=== PATIENT | female | born 1940 | race Caucasian/White ===

== ENCOUNTER → 2020-03-28 13:59 | Outpatient (BNVA) | payer MEDICARE, OTHER, SELFPAY | PROVIDERS: Family Provider Family Medicine; PCP Family Medicine; Visit Provider Family Medicine | DX: E03.9 Hypothyroidism, unspecified (principal); M19.90 Unspecified osteoarthritis, unspecified site; K21.9 Gastro-esophageal reflux disease without esophagitis; F03.90 Unspecified dementia, unspecified severity, without behavioral disturbance, psychotic disturbance, mood disturbance, and anxiety | CPT/HCPCS: 80053; 80061; 83735; 84443 ==

== ENCOUNTER → 2020-10-09 10:17 | Outpatient (BNVA) | payer MEDICARE, OTHER, SELFPAY | PROVIDERS: Family Provider Family Medicine; PCP Family Medicine; Visit Provider Family Medicine | DX: K64.9 Unspecified hemorrhoids (principal) | CPT/HCPCS: 82270 ==

== ENCOUNTER → 2020-10-11 10:41 | Outpatient (BNVA) | payer MEDICARE, OTHER, SELFPAY | PROVIDERS: Family Provider Family Medicine; PCP Family Medicine; Visit Provider Family Medicine | DX: E78.5 Hyperlipidemia, unspecified (principal); E03.9 Hypothyroidism, unspecified; Z51.81 Encounter for therapeutic drug level monitoring; Z23 Encounter for immunization | CPT/HCPCS: 80053; 80061; 83735; 84443; 85025 ==

== ENCOUNTER → 2021-02-18 13:25 | Outpatient (BNVA) | payer MEDICARE, OTHER, SELFPAY | PROVIDERS: Family Provider Family Medicine; PCP Family Medicine; Visit Provider Family Medicine | DX: N39.0 Urinary tract infection, site not specified (principal); K59.00 Constipation, unspecified | CPT/HCPCS: 81003 ==

== ENCOUNTER → 2021-04-07 12:13 | Outpatient (BNVA) | payer MEDICARE, OTHER, SELFPAY | PROVIDERS: Family Provider Family Medicine; PCP Family Medicine; Visit Provider Family Medicine | DX: N39.0 Urinary tract infection, site not specified (principal); E03.9 Hypothyroidism, unspecified; E78.2 Mixed hyperlipidemia; K21.9 Gastro-esophageal reflux disease without esophagitis; M19.90 Unspecified osteoarthritis, unspecified site | CPT/HCPCS: 80053; 80061; 81003; 84443; 85025 ==

== ENCOUNTER 2021-05-23 08:38 | Emergency (ER) | payer MEDICARE, OTHER, SELFPAY ==
[2021-05-23 09:09] VITALS: BP 177/69; PULSE 83; RESP 16; TEMP 36.6; O2SAT 100; BMI 20.7
[2021-05-23 09:43] VITALS: BP 157/58; PULSE 59; RESP 15; O2SAT 100
--- NOTE | 2021-05-23 10:03 | ECG_ITS ---
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 Measurements Intervals [place] Rate: 61 P: 73 AL: 146 QRS: 9 QRSD: 81 T: 73 QT: 411 QTc: 417 Interpretive Statements SINUS RHYTHM WITH SINUS ARRHYTHMIA MINIMAL ST DEPRESSION [0.025+ mV ST DEPRESSION] Compared to ECG 11/13/2017 15:42:41 No significant changes Electronically Signed On 05-23-2021 14:14:02 CDT by Dilcia Rg M.D. [email or web address]
--- NOTE | 2021-05-23 10:03 | XR_ITS ---
WS: [id number] Portable AP upright chest, 05/23/2021 Clinical Data: weight loss Comparison: Portable chest, 11/13/2017. Findings: No nodules, masses or effusions are seen. The heart is normal. The pulmonary vascularity is not increased. No pneumonia or pneumothorax is seen. The aortic arch shows calcification. The diaphr agms are flattened. There is an anterior cervical disc fusion. Monitor leads are on the chest wall. XR/XR chest 1V portable [id number] Impression: Atherosclerosis and hyperinflation.
--- NOTE | 2021-05-23 10:08 | ED_ITS ---
HPI - General Adult General: Chief complaint: General Medical Stated complaint: pain all over, losing weight Time Seen by Provider: 05/23/21 09:53 History of Present Illness: HPI narrative: Patient states that she is lost weight over the last month. Says she hurts all over which she attributes to her osteoarthritis. Said she has history of constipation. Says her kidneys are working well and she not making much urine. Onset (ago): week(s) Associated symptoms: Reports no associated symptoms; Deny chest pain, dyspnea, headache(s), nausea, rash or vomiting Treatments prior to arrival: none Review of Systems Const: Reports: change in weight; Denies: fever(s), chills or body aches Eyes: Denies: change in vision or blurry vision ENMT: Denies: throat pain or nasal congestion Card: Denies: chest pain or dyspnea on exertion Resp: Denies: dyspnea, productive cough or non-productive cough GI: Reports: constipation; Denies: abdominal pain, nausea or vomiting : Reports: oliguria Musc: Reports: joint pain; Denies: extremity pain Skin/Breast: Denies: rash Neuro: Denies: headache(s) Psych: Denies: anxiety or depression Yair/Lymph: Denies: easy bruising PFSH ED PFSH: Family History Other Cancer Diabetes Social History Smoking and tobacco status: never smoked Alcohol intake: never Household members: spouse Marital status: Current occupational status: retired Physical Exam Const: COMMON NORMALS: no acute distress, average body habitus and patient oriented x3 HENMT: COMMON NORMALS: normocephalic HEAD & SCALP: normal to inspection and normocephalic FACE & SINUS: normal facial exam Eye: COMMON NORMALS: conjunctivae normal GENERAL EYE: appearance normal, both eyes and all related structures CONJUNCTIVA: Yes conjunctivae normal Neck/C-Spine: COMMON NORMALS: no JVD Chest: COMMONS NORMALS: normal inspection of the chest Resp: COMMON NORMALS: normal respiratory effort and clear to auscultation bilaterally AUSCULTATION: clear to auscultation bilaterally Cardio: COMMON NORMALS: no JVD, regular rate and regular rhythm RATE: regular rate RHYTHM: regular rhythm OTHER: 1+ nonpitting edema bilateral lower extremities GI: COMMON NORMALS: Normal to inspection, nondistended, normoactive bowel sounds present Extremity: COMMON NORMALS: normal to inspection and full ROM Neuro: COMMON NORMALS: patient oriented x3 Course Vital Signs: Vital signs: Vital Signs Temperature 97.8 F 05/23/21 09:09 Pulse Rate 73 05/23/21 10:36 Respiratory Rate 16 05/23/21 10:36 Blood Pressure 150/45 05/23/21 10:36 Pulse Oximetry 99 05/23/21 10:36 MDM - General Adult MDM Narrative: Medical decision making narrative: Work-up with radiology and lab studies were negative for any concerning problems. Patient was concerned about decreased urine output and her osteoarthritis more than anything. Kidneys look good. Patient does have NSAID take for her arthritis patient is going follow-up new provider next week which she has appointment scheduled. Lab Data: Labs: Lab Results 05/23/21 05/23/21 05/23/21 Range/Units 09:30 09:53 09:53 WBC 8.2 (4.0-10.0) 10^3/ uL RBC 4.48 (4.1-5.3) 10^6/u L Hgb 13.5 (11.5-15.3) g/dL Hct 41.4 (37.0-47.0) % MCV 92.4 (81-99) fL MCH 30.1 (28.0-34.0) pg MCHC 32.6 (30.0-36.0) g/dL RDW 13.6 (12.1-15.1) % Plt Count 260 (130-400) 10^3/c mm MPV 10.9 H (7.4-10.4) fL Neut % (Auto) 67.4 % Lymph % (Auto) 23.0 % [place] % (Auto) 7.8 % Eos % (Auto) 1.0 % Baso % (Auto) 0.6 % Neut # (Auto) 5.51 (1.8-7.7) 10^3/u L Lymph # (Auto) 1.9 (0.8-4.8) 10^3/u L [place] # (Auto) 0.6 (0.2-0.9) 10^3/u L Eos # (Auto) 0.1 (0.0-0.8) 10^3/u L Baso # (Auto) 0.1 (0.0-0.1) 10^3/u L Nucleated RBC % (a uto) 0 % Nucleated RBCs # 0.0 /100WBC Sodium 139 (136-145) mmol/L Potassium 4.5 (3.5-5.1) mmol/L Chloride 104 (98-107) mmol/L Carbon Dioxide 25 (22-29) mmol/L Anion Gap 14.5 (5-19) BUN 12 (8-23) mg/dL Creatinine 0.8 (0.5-0.9) mg/dL GFR Calculation Not Reportable Glucose 139 H (65-115) mg/dL Calculated Osmolal ity 290 (285-295) mOsm/k g Calcium 9.0 (8.5-10.5) mg/dL Total Bilirubin 0.4 (0.15-1.2) mg/dL AST 17 (0-32) U/L ALT 7 (0-33) U/L Alkaline Phosphata se 82 (35-105) IU/L Total Protein 7.0 (6.6-8.7) g/dL Albumin 4.3 (3.5-5.2) g/dL Globulin 2.7 (1.3-4.6) g/dL TSH (0.27-4.20) uIU/ mL Urine Color Straw (Yellow) Urine Appearance Clear (CLEAR) Urine pH 7 (5-7) Ur Specific Gravit y 1.005 (1.005-1.030) Urine Protein Neg (Negative) Urine Glucose (UA) Norm (Normal) Urine Ketones Negative (Negative) Urine Blood Neg (Negative) Urine Nitrate Negative (Negative) Urine Bilirubin Neg (Negative) Urine Urobilinogen Norm (Negative) mg/dL Ur Leukocyte Cait ase Negative (Negative) 05/23/21 Range/Units 09:53 WBC (4.0-10.0) 10^3/ uL RBC (4.1-5.3) 10^6/u L Hgb (11.5-15.3) g/dL Hct (37.0-47.0) % MCV (81-99) fL MCH (28.0-34.0) pg MCHC (30.0-36.0) g/dL RDW (12.1-15.1) % Plt Count (130-400) 10^3/c mm MPV (7.4-10.4) fL Neut % (Auto) % Lymph % (Auto) % [place] % (Auto) % Eos % (Auto) % Baso % (Auto) % Neut # (Auto) (1.8-7.7) 10^3/u L Lymph # (Auto) (0.8-4.8) 10^3/u L [place] # (Auto) (0.2-0.9) 10^3/u L Eos # (Auto) (0.0-0.8) 10^3/u L Baso # (Auto) (0.0-0.1) 10^3/u L Nucleated RBC % (a uto) % Nucleated RBCs # /100WBC Sodium (136-145) mmol/L Potassium (3.5-5.1) mmol/L Chloride (98-107) mmol/L Carbon Dioxide (22-29) mmol/L Anion Gap (5-19) BUN (8-23) mg/dL Creatinine (0.5-0.9) mg/dL GFR Calculation Glucose (65-115) mg/dL Calculated Osmolal ity (285-295) mOsm/k g Calcium (8.5-10.5) mg/dL Total Bilirubin (0.15-1.2) mg/dL AST (0-32) U/L ALT (0-33) U/L Alkaline Phosphata se (35-105) IU/L Total Protein (6.6-8.7) g/dL Albumin (3.5-5.2) g/dL Globulin (1.3-4.6) g/dL TSH 2.46 (0.27-4.20) uIU/ mL Urine Color (Yellow) Urine Appearance (CLEAR) Urine pH (5-7) Ur Specific Gravit y (1.005-1.030) Urine Protein (Negative) Urine Glucose (UA) (Normal) Urine Ketones (Negative) Urine Blood (Negative) Urine Nitrate (Negative) Urine Bilirubin (Negative) Urine Urobilinogen (Negative) mg/dL Ur Leukocyte Cait ase (Negative) EKG Data^: EKG 1: EKG interpretation date: 05/23/21 EKG interpretation time: 10:23 Computer generated interpretation: Chest X-Ray 05/23/21 10:03 Impression: Atherosclerosis and hyperinflation. None sinus rhythm with sinus arrhythmia ventricular rate 61 bpm ID interval 146 ms cures duration 81 ms QT is [address] changes noted reviewed by Dr. Cruz Discharge Plan Discharge Patient Disposition: Home Clinical Impression: Excessive weight loss Osteoarthritis Qualifiers: Osteoarthritis location: multiple joints Osteoarthritis type: primary Qualified Code(s): M89.49 - Other hypertrophic osteoarthropathy, multiple sites Condition: Stable Prescriptions: No Action pramoxine [Proctofoam] 1 % foam 1 applic ID BID Qty: 15 RF: 3 rosuvastatin 10 mg tablet See Rx Instructions .ROUTE .COMPLEX Qty: 90 RF: 0 levothyroxine 100 mcg tablet See Rx Instructions .ROUTE .COMPLEX Qty: 90 RF: 5 donepezil 10 mg tablet See Rx Instructions .ROUTE .COMPLEX Qty: 90 RF: 5 diclofenac sodium [Voltaren] 1 % gel 2 g topical QID Qty: 100 RF: 0 meloxicam 7.5 mg tablet See Rx Instructions .ROUTE .COMPLEX Qty: 30 RF: 5 omeprazole 20 mg capsule,delayed release(DR/EC) See Rx Instructions .ROUTE .COMPLEX Qty: 90 RF: 0 ciprofloxacin HCl [Cipro] 500 mg tablet 500 mg PO BID Qty: 20 RF: 0 cetirizine 10 mg tablet See Rx Instructions .ROUTE .COMPLEX Qty: 90 RF: 5 magnesium oxide 400 mg (241.3 mg magnesium) tablet See Rx Instructions .ROUTE .COMPLEX Qty: 90 RF: 0 Discharge Orders: Discharge ED (Routine); Ordered 05/23/21 Ordered By: Donovan Hyde Discharge Diet: Usual diet Discharge Activity: Increase activity as tolerated Patient Instructions: Opioid Safety Activity Restrictions/Additional Instructions: Follow-up your regular scheduled appointment with your new provider. Discuss thyroid. Can return here if worsening symptoms. Coding Level of Care Code ED Central Stores Attendant for [place] Fwd Exam Comprehensive
[2021-05-23 10:10] LABS: Basophils # 0.1 10^3/uL (0.0-0.1); Basophils % 0.6 %; Eosinophils # 0.1 10^3/uL (0.0-0.8); Hematocrit 41.4 % (37.0-47.0); Hemoglobin 13.5 g/dL (11.5-15.3); Lymphocytes # 1.9 10^3/uL (0.8-4.8); Mean Corpuscular HGB Conc 32.6 g/dL (30.0-36.0); Mean Corpuscular Hemoglobin 30.1 pg (28.0-34.0); Mean Corpuscular Volume 92.4 fL (81-99); Mean Platelet Volume 10.9 fL (7.4-10.4); Monocytes # 0.6 10^3/uL (0.2-0.9); Monocytes % 7.8 %; Neutrophils # 5.51 10^3/uL (1.8-7.7); Neutrophils % 67.4 %; Nucleated Red Blood Cells % 0 %; Platelet Count 260 10^3/cmm (130-400); Red Blood Count 4.48 10^6/uL (4.1-5.3); Red Cell Distribution Width 13.6 % (12.1-15.1); White Blood Count 8.2 10^3/uL (4.0-10.0)
[2021-05-23 10:21] LABS: Add Urine Microscopic? NO; Charge for UA Resulting for Rev
[2021-05-23 10:23] LABS: Alanine Aminotransferase 7 U/L (0-33); Albumin Level 4.3 g/dL (3.5-5.2); Alkaline Phosphatase 82 IU/L (35-105); Anion Gap 14.5 (5-19); Aspartate Amino Transferase 17 U/L (0-32); Blood Urea Nitrogen 12 mg/dL (8-23); Carbon Dioxide 25 mmol/L (22-29); Chloride 104 mmol/L (98-107); Globulin 2.7 g/dL (1.3-4.6); Glucose 139 mg/dL (65-115); Osmolality Calculated 290 mOsm/kg (285-295); Potassium 4.5 mmol/L (3.5-5.1); Sodium 139 mmol/L (136-145); Total Bilirubin 0.4 mg/dL (0.15-1.2)
[2021-05-23 10:30] LABS: Bilirubin Urine Neg (Negative); Blood Urine Neg (Negative); Glucose Urine UA Norm (Normal); Ketones Urine Negative (Negative); Leukocyte Esterase Urine Negative (Negative); Nitrate Urine Negative (Negative); Protein Urine Neg (Negative); Specific Gravity, Urine 1.005 (1.005-1.030); Urine Appearance Clear (CLEAR); Urine Color Straw (Yellow); Urobilinogen Urine Norm (Negative); pH Urine 7 (5-7)
[2021-05-23 10:36] VITALS: BP 150/45; PULSE 73; RESP 16; O2SAT 99
[2021-05-23 11:21] LABS: Thyroid Stimulating Hormone 2.46 uIU/mL (0.27-4.20)
== END 2021-05-23 10:57 | disposition home or self-care (01) ==
PROVIDERS: Emergency Provider Nurse Practitioner Family
DX: R63.4 Abnormal weight loss (principal); M89.49 Other hypertrophic osteoarthropathy, multiple sites
CPT/HCPCS: 71045; 80053; 81003; 84443; 85025; 93005; 99283

== ENCOUNTER → 2021-06-16 11:05 | Outpatient (BNVA) | payer MEDICARE, OTHER, SELFPAY | DX: N39.0 Urinary tract infection, site not specified (principal); R68.89 Other general symptoms and signs; R39.9 Unspecified symptoms and signs involving the genitourinary system | CPT/HCPCS: 81000 ==

== ENCOUNTER 2022-02-03 18:30 | Emergency (ER) | payer MEDICARE, OTHER, SELFPAY ==
[2022-02-03 18:37] VITALS: BP 170/72; PULSE 90; RESP 18; TEMP 36.4; O2SAT 100; BMI 20.1
--- NOTE | 2022-02-03 18:52 | ED_ITS ---
HPI - General Adult General: Chief complaint: Neuro Symptoms/Deficit Stated complaint: Possible Mini Stroke Time Seen by Provider: 02/03/22 18:45 Source: patient Mode of arrival: ambulatory Limitations: no limitations History of Present Illness: 81-year-old female states she went to bed at 430 woke up roughly 2 hours ago states that she was very confused and could not form thoughts and could not speak. She states that she was unable to find words or speak for roughly an hour symptoms of since totally resolved states her speech is back to normal she had no facial droop no weakness denies any weakness here no history of stroke no headache no chest pain. Associated symptoms: Deny chest pain, dyspnea, headache(s), nausea, rash or vomiting Review of Systems Const: Denies: fever(s), chills, body aches or change in appetite Eyes: Denies: blurry vision or eye discomfort ENMT: Denies: throat pain or dental pain Card: Denies: chest pain Resp: Denies: dyspnea GI: Denies: abdominal pain, nausea, vomiting or diarrhea : Denies: dysuria Musc: Denies: neck pain or back pain Skin/Breast: Denies: rash Neuro: Reports: difficulty communicating thoughts; Denies: headache(s) Psych: Denies: depression Yair/Lymph: Denies: easy bruising All/Imm: Denies: urticaria PFSH ED PFSH: Medical History Acute hemorrhoid Multiple somatic complaints Peripheral neuropathic pain Urinary hesitancy Surgical History History of hip replacement History of partial hysterectomy Family History Other Cancer Diabetes Social History Alcohol intake: never Household members: spouse Marital status: Current occupational status: retired Physical Exam Const: COMMON NORMALS: no acute distress, patient oriented x3 and healthy appearing HENMT: COMMON NORMALS: normocephalic and atraumatic HEAD & SCALP: normocephalic and atraumatic Eye: COMMON NORMALS: Equal, round and reactive pupils present and EOMs intact bilaterally PUPIL: Yes Equal, round and reactive pupils present Neck/C-Spine: COMMON NORMALS: full ROM and supple Chest: COMMONS NORMALS: normal inspection of the chest and normal palpation of entire chest wall Resp: COMMON NORMALS: normal respiratory effort, No retractions, No use of accessory muscles and clear to auscultation bilaterally AUSCULTATION: clear to auscultation bilaterally Cardio: COMMON NORMALS: regular rate, regular rhythm and No murmurs present (Cardio) RATE: regular rate RHYTHM: regular rhythm GI: COMMON NORMALS: Normal to inspection, nondistended, normoactive bowel sounds present, Soft to palpation, non-tender and no masses PALPATION: Yes Soft to palpation Extremity: COMMON NORMALS: normal to inspection and full ROM Neuro: COMMON NORMALS: patient oriented x3, moves all extremities and no focal motor deficits Psych: COMMON NORMALS: mental status grossly normal, Normal thought process present and cooperative THOUGHT PROCESS: Normal thought process present Skin: COMMON NORMALS: no rashes or lesions noted and no wounds GENERAL SKIN EXAM: no rashes or lesions noted Course Vital Signs: Vital signs: Vital Signs Temperature 97.5 F L 02/03/22 18:37 Pulse Rate 75 02/03/22 20:44 Respiratory Rate 18 02/03/22 20:44 Blood Pressure 153/63 02/03/22 20:44 Pulse Oximetry 96 02/03/22 20:44 [facility] - General Adult Medical Decision Making Patient presents here with likely TIA her symptoms of symptoms completely resolved CT head here is normal. Did offer her admission and she never had a TIA in the past she states she feels much improved would like to go home she is already on a statin will start a baby aspirin she is to follow-up PCP in 3 to 5 days return if worsening she understands agrees plan. Lab Data : 02/03/22 19:05 02/03/22 19:05 Radiology Impressions Chest X-Ray 02/03/22 19:01 IMPRESSION: No acute finding. Head CT 02/03/22 19:01 IMPRESSION: 1. No acute intracranial abnormality. Laboratory Results WBC 12.8 10^3/uL (4.0-10.0) H 02/03/22 19:05 RBC 3.81 10^6/uL (4.1-5.3) L 02/03/22 19:05 Hgb 11.8 g/dL (11.5-15.3) 02/03/22 19:05 Hct 36.6 % (37.0-47.0) L 02/03/22 19:05 MCV 96.1 fl (81-99) 02/03/22 19:05 MCH 31.0 pg (28.0-34.0) 02/03/22 19:05 MCHC 32.2 g/dL (30.0-36.0) 02/03/22 19:05 RDW 13.5 % (12.1-15.1) 02/03/22 19:05 Plt Count 245 10^3/cmm (130-400) 02/03/22 19:05 MPV 11.0 fL (7.4-10.4) H 02/03/22 19:05 Neut % (Auto) 72.8 % 02/03/22 19:05 Lymph % (Auto) 16.9 % 02/03/22 19:05 [place] % (Auto) 9.4 % 02/03/22 19:05 Eos % (Auto) 0.2 % 02/03/22 19:05 Baso % (Auto) 0.5 % 02/03/22 19:05 Neut # (Auto) 9.27 10^3/uL (1.8-7.7) H 02/03/22 19:05 Lymph # (Auto) 2.2 10^3/uL (0.8-4.8) 02/03/22 19:05 [place] # (Auto) 1.2 10^3/uL (0.2-0.9) H 02/03/22 19:05 Eos # (Auto) 0.0 10^3/uL (0.0-0.8) 02/03/22 19:05 Baso # (Auto) 0.1 10^3/uL (0.0-0.1) 02/03/22 19:05 Nucleated RBC % (auto) 0 % 02/03/22 19:05 Nucleated RBCs # 0.0 /100WBC 02/03/22 19:05 PT 13.40 SECONDS (12.1-14.9) 02/03/22 19:05 INR 0.99 (0.8-1.2) 02/03/22 19:05 Sodium 141 mmol/L (136-145) 02/03/22 19:05 Potassium 4.1 mmol/L (3.5-5.1) 02/03/22 19:05 Chloride 108 mmol/L (98-107) H 02/03/22 19:05 Carbon Dioxide 22 mmol/L (22-29) 02/03/22 19:05 Anion Gap 15.1 (5-19) 02/03/22 19:05 BUN 18 mg/dL (8-23) 02/03/22 19:05 Creatinine 0.6 mg/dL (0.5-0.9) 02/03/22 19:05 GFR Calculation Not Reportable 02/03/22 19:05 Glucose 116 mg/dL (65-115) H 02/03/22 19:05 Calculated Osmolality 295 mOsm/kg (285-295) 02/03/22 19:05 Calcium 9.3 mg/dL (8.5-10.5) 02/03/22 19:05 Total Bilirubin 0.2 mg/dL (0.15-1.2) 02/03/22 19:05 AST 16 U/L (0-32) 02/03/22 19:05 ALT 10 U/L (0-33) 02/03/22 19:05 Alkaline Phosphatase 64 IU/L (35-105) 02/03/22 19:05 Total Protein 7.0 g/dL (6.6-8.7) 02/03/22 19:05 Albumin 4.2 g/dL (3.5-5.2) 02/03/22 19:05 Globulin 2.8 g/dL (1.3-4.6) 02/03/22 19:05 Urine Color Yellow (Yellow) 02/03/22 20:11 Urine Appearance Clear (CLEAR) 02/03/22 20:11 Urine pH 7 (5-7) 02/03/22 20:11 Ur Specific [place] 1.005 (1.005-1.030) 02/03/22 20:11 Urine Protein Neg (Negative) 02/03/22 20:11 Urine Glucose (UA) Norm (Normal) 02/03/22 20:11 Urine Ketones Negative (Negative) 02/03/22 20:11 Urine Blood Neg (Negative) 02/03/22 20:11 Urine Nitrate Negative (Negative) 02/03/22 20:11 Urine Bilirubin Neg (Negative) 02/03/22 20:11 Urine Urobilinogen Norm mg/dL (Negative) 02/03/22 20:11 Ur Leukocyte Esterase Negative (Negative) 02/03/22 20:11 Discharge Plan Discharge Patient Disposition: Home Clinical Impression: Transient cerebral ischemia Condition: Stable Prescriptions: New aspirin 81 mg tablet,delayed release (DR/EC) 81 mg PO DAILY Qty: 30 0RF No Action pramoxine [Proctofoam] 1 % foam 1 applic CO BID Qty: 15 3RF rosuvastatin 10 mg tablet See Rx Instructions .ROUTE .COMPLEX Qty: 90 0RF Dose Instruction: TAKE ONE TABLET BY MOUTH DAILY Rx Instructions: TAKE ONE TABLET BY MOUTH DAILY levothyroxine 100 mcg tablet See Rx Instructions .ROUTE .COMPLEX Qty: 90 5RF Dose Instruction: TAKE ONE TABLET BY MOUTH DAILY Rx Instructions: TAKE ONE TABLET BY MOUTH DAILY donepezil 10 mg tablet See Rx Instructions .ROUTE .COMPLEX Qty: 90 5RF Dose Instruction: TAKE ONE TABLET BY MOUTH EVERY DAY Rx Instructions: TAKE ONE TABLET BY MOUTH EVERY DAY diclofenac sodium [Voltaren] 1 % gel 2 g topical QID Qty: 100 0RF Rx Instructions: apply to single elbow, wrist or hand; for hand includes palm/fingers/back of hand meloxicam 7.5 mg tablet See Rx Instructions .ROUTE .COMPLEX Qty: 30 5RF Dose Instruction: TAKE ONE TABLET BY MOUTH DAILY - TAKE WITH FOOD Rx Instructions: TAKE ONE TABLET BY MOUTH DAILY - TAKE WITH FOOD omeprazole 20 mg capsule,delayed release(DR/EC) See Rx Instructions .ROUTE .COMPLEX Qty: 90 0RF Dose Instruction: TAKE ONE CAPSULE BY MOUTH EVERY DAY Rx Instructions: TAKE ONE CAPSULE BY MOUTH EVERY DAY tramadol 50 mg tablet 50 mg PO BID PRN0RF gabapentin 100 mg capsule 100 mg PO .qhs Qty: 30 0RF cetirizine 10 mg tablet See Rx Instructions .ROUTE .COMPLEX Qty: 90 5RF Dose Instruction: TAKE ONE TABLET BY MOUTH DAILY NEEDED FOR ALLERGY SYMPTOMS Rx Instructions: TAKE ONE TABLET BY MOUTH DAILY NEEDED FOR ALLERGY SYMPTOMS magnesium oxide 400 mg (241.3 mg magnesium) tablet See Rx Instructions .ROUTE .COMPLEX Qty: 90 0RF Dose Instruction: TAKE ONE TABLET BY MOUTH AT BEDTIME FOR LEG CRAMPS Rx Instructions: TAKE ONE TABLET BY MOUTH AT BEDTIME FOR LEG CRAMPS Discharge Orders: Discharge ED (Routine); Ordered 02/03/22 Ordered By: Patty Preciado Referrals: Cristopher Phillip MD [Primary Care Provider] - Discharge Diet: Advance as tolerated Discharge Activity: Resume usual activity Patient Instructions: TIA Coding Level of Care Code ED Eating Disorder Specialist for Ch[place] Fwd Exam Comprehensive NIH stroke score NIHSS Level Of Consciousness - 1a: 0 Level Of Consciousness Questions - 1b: Both Correct Level Of Consciousness Commands - 1c: Both Correct Best Gaze - 2: Normal Visual Doss - 3: No Visual Loss Facial Palsy - 4: Normal Motor Arm Right - 5: No Drift Motor Arm Left - 5: No Drift Motor Leg Right - 6: No Drift Motor Leg Left - 6: No Drift Limb Ataxia - 7: Absent Sensory - 8: Normal Best Language - 9: No Aphasia Dysarthia - 10: Normal Extinction And Inattention - 11: 0 Score Total Score: 0
--- NOTE | 2022-02-03 19:01 | CTR_ITS ---
PROCEDURE INFORMATION: Exam: CT Head Without Contrast Exam date and time: 02/03/2022 7:01 PM Age: 81 years old Clinical indication: Weakness, extremity TECHNIQUE: Imaging protocol: Computed tomography of the head without contrast. Radiation optimization: All CT scans at this facility use at least one of these dose optimization techniques: automated exposure control; mA and/or kV adjustment per patient size (includes targeted exams where dose is matched to clinical indication); or iterative reconstruction. COMPARISON: MRI Head w/wo* [id number] 08/13/2016 2:14 PM RADIATION DOSE METRICS: Total DLP (mGy-cm): 830.92 FINDINGS: Brain: Diffuse cortical volume loss, in keeping with patient age. Mild hypodensities in supratentorial periventricular and subcortical white matter, consistent with microangiopathy. No intracranial hemorrhage. Cerebral ventricles: No ventriculomegaly. Paranasal sinuses: Visualized sinuses are unremarkable. No fluid levels. Mastoid air cells: Visualized mastoid air cells are well aerated. Orbital cavity: Bilateral cataract surgery. Vasculature: No hyperdense artery. Bones/joints: Chronic thinning of the superior calvarium near the vertex. No fracture. Soft tissues: Unremarkable. CT/CT head wo con* [id number] IMPRESSION: 1. No acute intracranial abnormality.
--- NOTE | 2022-02-03 19:01 | XRR_ITS ---
PROCEDURE INFORMATION: Exam: XR Chest Exam date and time: 02/03/2022 7:01 PM Age: 81 years old Clinical indication: Other: Weakness TECHNIQUE: Imaging protocol: XR of the chest. Views: 1 view. COMPARISON: CR XR chest 1V portable [id number] 05/23/2021 10:20 AM FINDINGS: Lungs: Changes of emphysema. Calcified granuloma in the right lung base. The lungs are otherwise clear. Pleural spaces: Unremarkable. No pleural effusion. No pneumothorax. Heart/Mediastinum: Unremarkable. No cardiomegaly. Bones/joints: C-spine fusion hardware. XR/XR chest 1V portable [id number] IMPRESSION: No acute finding.
--- NOTE | 2022-02-03 19:04 | ECG_ITS ---
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 Measurements Intervals [place] Rate: 71 P: 70 [place]: 147 QRS: 34 QRSD: 77 T: 75 QT: 372 QTc: 404 Interpretive Statements SINUS RHYTHM SEPTAL MYOCARDIAL INFARCTION , PROBABLY OLD [40+ ms Q WAVE IN V1/V2] Compared to ECG 05/23/2021 10:22:59 Myocardial infarct finding now present Sinus arrhythmia no longer present ST (T wave) deviation no longer present Electronically Signed On 02-03-2022 20:21:24 INDUSTRIAL MACHINE ASSEMBLER by Nico Rosen M.D. [id number]
[2022-02-03 19:15] LABS: Basophils # 0.1 10^3/uL (0.0-0.1); Basophils % 0.5 %; Eosinophils % 0.2 %; Hematocrit 36.6 % (37.0-47.0); Hemoglobin 11.8 g/dL (11.5-15.3); Lymphocytes # 2.2 10^3/uL (0.8-4.8); Lymphocytes % 16.9 %; Mean Corpuscular HGB Conc 32.2 g/dL (30.0-36.0); Mean Corpuscular Volume 96.1 fl (81-99); Monocytes # 1.2 10^3/uL (0.2-0.9); Monocytes % 9.4 %; Neutrophils # 9.27 10^3/uL (1.8-7.7); Neutrophils % 72.8 %; Nucleated Red Blood Cells % 0 %; Platelet Count 245 10^3/cmm (130-400); Red Blood Count 3.81 10^6/uL (4.1-5.3); Red Cell Distribution Width 13.5 % (12.1-15.1); White Blood Count 12.8 10^3/uL (4.0-10.0)
[2022-02-03 19:27] LABS: INR 0.99 (0.8-1.2)
[2022-02-03] MEDS: sodium chloride 0.9% 1,000 ML 999 ML IV (19:34)
[2022-02-03 19:36] LABS: Alanine Aminotransferase 10 U/L (0-33); Albumin Level 4.2 g/dL (3.5-5.2); Alkaline Phosphatase 64 IU/L (35-105); Aspartate Amino Transferase 16 U/L (0-32); Blood Urea Nitrogen 18 mg/dL (8-23); Calcium 9.3 mg/dL (8.5-10.5); Carbon Dioxide 22 mmol/L (22-29); Chloride 108 mmol/L (98-107); Globulin 2.8 g/dL (1.3-4.6); Glucose 116 mg/dL (65-115); Osmolality Calculated 295 mOsm/kg (285-295); Sodium 141 mmol/L (136-145); Total Bilirubin 0.2 mg/dL (0.15-1.2)
[2022-02-03 19:37] LABS: Anion Gap 15.1 (5-19); Potassium 4.1 mmol/L (3.5-5.1)
[2022-02-03 20:33] LABS: Add Urine Microscopic? NO; Charge for UA Resulting for Rev
[2022-02-03 20:39] LABS: Bilirubin Urine Neg (Negative); Blood Urine Neg (Negative); Glucose Urine UA Norm (Normal); Ketones Urine Negative (Negative); Leukocyte Esterase Urine Negative (Negative); Nitrate Urine Negative (Negative); Protein Urine Neg (Negative); Specific Gravity, Urine 1.005 (1.005-1.030); Urine Appearance Clear (CLEAR); Urine Color Yellow (Yellow); Urobilinogen Urine Norm (Negative); pH Urine 7 (5-7)
[2022-02-03 20:44] VITALS: BP 153/63; PULSE 75; RESP 18; O2SAT 96
[2022-02-03 21:29] VITALS: BP 170/55; PULSE 77; RESP 18; O2SAT 100
--- NOTE | 2022-02-18 12:52 | DCPLANNER ---
studio operations manager had message to speak with patient about getting established with a primary care physician. studio operations manager unable to speak with patient or leave a voicemail at this time.
--- NOTE | 2022-02-18 12:54 | DCPLANNER ---
hall manager had message to speak with patient about getting established with a primary care physician. hall manager unable to speak with patient or leave a voicemail at this time.
== END 2022-02-03 21:34 | disposition home or self-care (01) ==
PROVIDERS: Emergency Provider Emergency Medicine; PCP Family Medicine Adult Medicine
DX: G45.9 Transient cerebral ischemic attack, unspecified (principal)
CPT/HCPCS: 70450; 71045; 80053; 81003; 85025; 85610; 93005; 96360; 99283; J7030

== ENCOUNTER 2022-04-07 07:57 | Emergency (ER) | payer MEDICARE, OTHER, SELFPAY ==
[2022-04-07 08:11] VITALS: BP 136/52; PULSE 78; RESP 14; O2SAT 99
[2022-04-07 08:14] VITALS: BP 154/51; PULSE 54; RESP 16; TEMP 36.6; O2SAT 99
--- NOTE | 2022-04-07 08:25 | CT_ITS ---
WS: [id number] CT HEAD NONCONTRAST HISTORY: AMS TECHNIQUE: Contiguous axial imaging performed through the brain in 2.5 mm imaging. Bone and soft tiss ue windows. Sagittal and coronal reformats reviewed. All CT scans at [facility] use at least one of these dose optimization techniques: automated exposure control; mA and/or kV adjustment per pa tient size (includes targeted exams where dose is matched to clinical indication); or iterative recon struction. DLP: 776.31 mGy.cm COMPARISON: 02/03/2022, MRI of 08/13/2016 No acute intracranial hemorrhage, midline shift or mass effect. Moderate atrophy cerebellum and cerebrum with mild small vessel ischemic disease. 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 No large territory infar ct or volume loss. Ventricles: Normally prominent ventricles and extra-axial spaces on the basis of volume loss. Paranasal sinuses: As visualized are clear. Mastoid air cells: Well pneumatized. Calvarium and scalp: Skull is intact with no soft tissue edema or swelling. CT/CT head wo con* [id number] IMPRESSION: 1. No acute intracranial hemorrhage or edema. 2. Moderate atrophy throughout the brain. Mild small vessel ischemic disease. No change since 02/03/2022.
--- NOTE | 2022-04-07 08:26 | ECG_ITS ---
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 Measurements Intervals [place] Rate: 55 P: 75 [place]: 156 QRS: 65 QRSD: 83 T: 85 QT: 434 QTc: 419 Interpretive Statements SINUS BRADYCARDIA WITH SINUS ARRHYTHMIA SEPTAL MYOCARDIAL INFARCTION , OF INDETERMINATE AGE [40+ ms Q WAVE IN V1/V2] Compared to ECG 02/03/2022 19:29:50 Sinus rhythm no longer present Myocardial infarct finding still present Electronically Signed On 04-07-2022 17:27:54 CDT by Nico Rosen M.D. [id number]
--- NOTE | 2022-04-07 08:40 | ED_ITS ---
HPI - Neuro Symptoms/Deficit General: Chief Complaint: Neuro Symptoms/Deficit Stated Complaint: possible stroke Time Seen by Provider: 04/07/22 07:58 Source: patient Mode of arrival: ambulatory Limitations: no limitations History of Present Illness: 81-year-old female presents emergency room with her . Patient is concerned she is having a stroke. She has difficulty walking and talking. For the last several weeks even months that she has had increasing difficulty with cognitive function and memory and diminishing physical capabilities to the point where it appears with her ability to maintain her ADLs. She is fearful and anxious on arrival. Onset (ago): week(s) Timing confirmed by: spouse History of same: Yes Severity: mild Quality: weak Relieving factors: none Exacerbating factors: none Context: gradual onset Associated symptoms: Reports malaise; Deny chest pain, cough, diaphoresis, fevers/chills, headache(s), anorexia, nause a, seizures, short of breath, syncope, tingling, vertigo, vomiting or weakness Treatments Prior to Arrival: none Review of Systems Const: Reports: fatigue and malaise; Denies: fever(s), chills, body aches, change in appetite or diaphoresis ENMT: Denies: throat pain, ear or mastoid pain, nasal discharge or nasal congestion Card: Denies: chest pain, edema, syncope, dyspnea on exertion or orthopnea Resp: Denies: dyspnea, productive cough or non-productive cough GI: Denies: abdominal pain, nausea, vomiting, hematemesis, coffee ground emesis, diarrhea, constipation, bloating, hematochezia or melena : Denies: flank pain, difficulty voiding, dysuria, urinary frequency or urinary urgency Skin/Breast: Denies: rash or pruritus Neuro: Denies: headache(s) or vertigo PFS ED PFSH: Medical History Acute hemorrhoid Dementia Hesitancy of micturition Multiple somatic complaints Peripheral neuropathic pain Urinary hesitancy Weight loss, non-intentional Surgical History History of hip replacement History of partial hysterectomy Family History Other Cancer Diabetes Social History Alcohol intake: never Household members: spouse Marital status: Current occupational status: retired NIH stroke score NIHSS: Level Of Consciousness - 1a: 0 Level Of Consciousness Questions - 1b: Both Correct Level Of Consciousness Commands - 1c: Both Correct Best Gaze - 2: Normal Visual Doss - 3: No Visual Loss Facial Palsy - 4: Normal Motor Arm Right - 5: No Drift Motor Arm Left - 5: No Drift Motor Leg Right - 6: No Drift Motor Leg Left - 6: No Drift Limb Ataxia - 7: Absent Sensory - 8: Normal Best Language - 9: No Aphasia Dysarthia - 10: Normal Extinction And Inattention - 11: 0 Score: Total Score: 0 Physical Exam Const: GENERAL APPEARANCE: cooperative and comfortable ORIENTATION/CONSCIOUSNESS: Yes awake, Yes oriented to person, Yes oriented to place and Yes oriented to time HENMT: COMMON NORMALS: normocephalic, atraumatic, hearing grossly normal bilaterally, external ears normal, EAC's normal, TM's normal bilaterally, Normal nasal mucous membranes and turbinates present, moist oral mucous membranes and oropharynx normal HEAD & SCALP: normocephalic and atraumatic NOSE: Normal nasal mucous membranes and turbinates present EXTERNAL EAR: Yes external ears normal EXTERNAL AUDITORY CANAL: EAC's normal TYMPANIC MEMBRANE: TM's normal bilaterally Eye: COMMON NORMALS: Equal, round and reactive pupils present, EOMs intact bilaterally, conjunctivae normal and no scleral icterus CONJUNCTIVA: Yes conjunctivae normal PUPIL: Yes Equal, round and reactive pupils present Neck/C-Spine: COMMON NORMALS: full ROM, no lymphadenopathy, supple and no JVD Resp: COMMON NORMALS: normal respiratory effort, No retractions, No use of accessory muscles and clear to auscultation bilaterally AUSCULTATION: clear to auscultation bilaterally Cardio: COMMON NORMALS: no JVD, regular rate, regular rhythm and No murmurs present (Cardio) RATE: regular rate RHYTHM: regular rhythm GI: COMMON NORMALS: Soft to palpation and No hepatosplenomegaly present AUSCULTATION: Yes normoactive bowel sounds PALPATION: Yes Soft to palpation, No Tenderness to palpation present (GI), No Guarding due to palpation present (GI) and Yes No hepatosplenomegaly present Extremity: COMMON NORMALS: normal to inspection, capillary refill normal, no clubbing, cyanosis or edema, no calf tenderness and no pedal edema Neuro: SENSORIUM/ORIENTATION: Yes oriented to person, Yes oriented to place and Yes oriented to time Skin: COMMON NORMALS: no rashes or lesions noted GENERAL SKIN EXAM: no rashes or lesions noted Course Vital Signs: Vital signs: Vital Signs Temperature 97.8 F 04/07/22 08:14 Pulse Rate 61 04/07/22 10:27 Respiratory Rate 15 04/07/22 10:27 Blood Pressure 132/53 04/07/22 10:27 Pulse Oximetry 100 04/07/22 10:27 MDM - Neuro Symptoms/Deficit Medical Decision Making Stroke score 0 CT of the head is negative. Patient does have some moderate and progressive cognitive decline over the last several weeks as well as physical decline according to the . She has varying times where it is better or worse they have seen in primary care doctor for this. At that time she presented and at the time of discharge there is no evidence of any localizing symptoms. I think this is just variations in her loss of cognitive function manifesting themselves. Discharge home continue medications I do recommend that she continue the aspirin 81 mg daily she is already on a statin. At this time no other interventions recommended. Medical Records I reviewed the patient's medical records. Lab Data I reviewed the patient's lab results. : 04/07/22 08:30 04/07/22 09:[address] 04/07/22 08:25 IMPRESSION: 1. No acute intracranial hemorrhage or edema. 2. Moderate atrophy throughout the brain. Mild small vessel ischemic disease. No change since 02/03/2022. Laboratory Results WBC 7.7 10^3/uL (4.0-10.0) 04/07/22 08:30 RBC 4.23 10^6/uL (4.1-5.3) 04/07/22 08:30 Hgb 13.1 g/dL (11.5-15.3) 04/07/22 08:30 Hct 42.8 % (37.0-47.0) 04/07/22 08:30 MCV 101.2 fl (81-99) H 04/07/22 08:30 MCH 31.0 pg (28.0-34.0) 04/07/22 08:30 MCHC 30.6 g/dL (30.0-36.0) 04/07/22 08:30 RDW 19.1 % (12.1-15.1) H 04/07/22 08:30 Plt Count 200 10^3/cmm (130-400) 04/07/22 08:30 MPV 11.8 fL (7.4-10.4) H 04/07/22 08:30 Neut % (Auto) 60.3 % 04/07/22 08:30 Lymph % (Auto) 28.0 % 04/07/22 08:30 Hopkins % (Auto) 9.2 % 04/07/22 08:30 Eos % (Auto) 1.6 % 04/07/22 08:30 Baso % (Auto) 0.6 % 04/07/22 08:30 Neut # (Auto) 4.66 10^3/uL (1.8-7.7) 04/07/22 08:30 Lymph # (Auto) 2.2 10^3/uL (0.8-4.8) 04/07/22 08:30 Hopkins # (Auto) 0.7 10^3/uL (0.2-0.9) 04/07/22 08:30 Eos # (Auto) 0.1 10^3/uL (0.0-0.8) 04/07/22 08:30 Baso # (Auto) 0.1 10^3/uL (0.0-0.1) 04/07/22 08:30 Nucleated RBC % (auto) 0 % 04/07/22 08:30 Nucleated RBCs # 0.0 /100WBC 04/07/22 08:30 Sodium 140 mmol/L (136-145) 04/07/22 09:20 Potassium 3.6 mmol/L (3.5-5.1) 04/07/22 09:20 Chloride 107 mmol/L (98-107) 04/07/22 09:20 Carbon Dioxide 23 mmol/L (22-29) 04/07/22 09:20 Anion Gap 13.6 (5-19) 04/07/22 09:20 BUN 13 mg/dL (8-23) 04/07/22 09:20 Creatinine 0.7 mg/dL (0.5-0.9) 04/07/22 09:20 GFR Calculation Not Reportable 04/07/22 09:20 Glucose 96 mg/dL (65-115) 04/07/22 09:20 Calculated Osmolality 290 mOsm/kg (285-295) 04/07/22 09:20 Calcium 8.9 mg/dL (8.5-10.5) 04/07/22 09:20 Total Bilirubin 0.3 mg/dL (0.15-1.2) 04/07/22 09:20 AST 13 U/L (0-32) 04/07/22 09:20 ALT 7 U/L (0-33) 04/07/22 09:20 Alkaline Phosphatase 67 IU/L (35-105) 04/07/22 09:20 Creatine Kinase 62 U/L (26-192) 04/07/22 09:20 Troponin T Baseline 6 ng/L (0-10) 04/07/22 09:20 Total Protein 6.7 g/dL (6.6-8.7) 04/07/22 09:20 Albumin 3.6 g/dL (3.5-5.2) 04/07/22 09:20 Globulin 3.1 g/dL (1.3-4.6) 04/07/22 09:20 Urine Color Yellow (Yellow) 04/07/22 08:53 Urine Appearance Clear (CLEAR) 04/07/22 08:53 Urine pH 7 (5-7) 04/07/22 08:53 Ur Specific Boyds 1.010 (1.005-1.030) 04/07/22 08:53 Urine Protein Neg (Negative) 04/07/22 08:53 Urine Glucose (UA) Norm (Normal) 04/07/22 08:53 Urine Ketones Negative (Negative) 04/07/22 08:53 Urine Blood 2+ (Negative) H 04/07/22 08:53 Urine Nitrate Negative (Negative) 04/07/22 08:53 Urine Bilirubin Neg (Negative) 04/07/22 08:53 Urine Urobilinogen Norm mg/dL (Negative) 04/07/22 08:53 Ur Leukocyte Esterase Trace (Negative) H 04/07/22 08:53 Urine RBC 0-4 /hpf (0-2) H 04/07/22 08:53 Urine WBC 0-4 /hpf (0-5) H 04/07/22 08:53 Ur Squamous Epith Cells 5-10 /hpf (0-5) H 04/07/22 08:53 Amorphous Sediment Not Reportable 04/07/22 08:53 Urine Bacteria Trace /hpf (NONE) 04/07/22 08:53 Urine Mucus Trace /hpf 04/07/22 08:53 Discharge Plan Discharge Patient Disposition: Home Clinical Impression: Dementia Condition: Stable Prescriptions: No Action pramoxine [Proctofoam] 1 % foam 1 applic PA BID Qty: 15 3RF rosuvastatin 10 mg tablet See Rx Instructions .ROUTE .COMPLEX Qty: 90 0RF Dose Instruction: TAKE ONE TABLET BY MOUTH DAILY Rx Instructions: TAKE ONE TABLET BY MOUTH DAILY levothyroxine 100 mcg tablet See Rx Instructions .ROUTE .COMPLEX Qty: 90 5RF Dose Instruction: TAKE ONE TABLET BY MOUTH DAILY Rx Instructions: TAKE ONE TABLET BY MOUTH DAILY donepezil 10 mg tablet See Rx Instructions .ROUTE .COMPLEX Qty: 90 5RF Dose Instruction: TAKE ONE TABLET BY MOUTH EVERY DAY Rx Instructions: TAKE ONE TABLET BY MOUTH EVERY DAY diclofenac sodium [Voltaren] 1 % gel 2 g topical QID Qty: 100 0RF Rx Instructions: apply to single elbow, wrist or hand; for hand includes palm/fingers/back of hand meloxicam 7.5 mg tablet See Rx Instructions .ROUTE .COMPLEX Qty: 30 5RF Dose Instruction: TAKE ONE TABLET BY MOUTH DAILY - TAKE WITH FOOD Rx Instructions: TAKE ONE TABLET BY MOUTH DAILY - TAKE WITH FOOD omeprazole 20 mg capsule,delayed release(DR/EC) See Rx Instructions .ROUTE .COMPLEX Qty: 90 0RF Dose Instruction: TAKE ONE CAPSULE BY MOUTH EVERY DAY Rx Instructions: TAKE ONE CAPSULE BY MOUTH EVERY DAY tramadol 50 mg tablet 50 mg PO BID PRN0RF gabapentin 100 mg capsule 100 mg PO .qhs Qty: 30 0RF oxybutynin chloride 10 mg tablet extended release 24hr 10 mg PO DAILY Qty: 30 5RF cetirizine 10 mg tablet See Rx Instructions .ROUTE .COMPLEX Qty: 90 5RF Dose Instruction: TAKE ONE TABLET BY MOUTH DAILY NEEDED FOR ALLERGY SYMPTOMS Rx Instructions: TAKE ONE TABLET BY MOUTH DAILY NEEDED FOR ALLERGY SYMPTOMS aspirin 81 mg tablet,delayed release (DR/EC) 81 mg PO DAILY Qty: 30 0RF Discharge Orders: Discharge ED (Routine); Ordered 04/07/22 Ordered By: Bob Cano Referrals: Cristopher Phillip MD [Primary Care Provider] - Discharge Diet: Usual diet Discharge Activity: Increase activity as tolerated Patient Instructions: Opioid Safety Activity Restrictions/Additional Instructions: Continue to take aspirin daily. Follow-up with your primary care doctor within the week. 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
[2022-04-07 08:44] VITALS: BP 143/43; PULSE 61; RESP 16; O2SAT 100
[2022-04-07 08:54] LABS: Basophils # 0.1 10^3/uL (0.0-0.1); Basophils % 0.6 %; Eosinophils # 0.1 10^3/uL (0.0-0.8); Eosinophils % 1.6 %; Hematocrit 42.8 % (37.0-47.0); Hemoglobin 13.1 g/dL (11.5-15.3); Lymphocytes # 2.2 10^3/uL (0.8-4.8); Mean Corpuscular HGB Conc 30.6 g/dL (30.0-36.0); Mean Corpuscular Volume 101.2 fl (81-99); Mean Platelet Volume 11.8 fL (7.4-10.4); Monocytes # 0.7 10^3/uL (0.2-0.9); Monocytes % 9.2 %; Neutrophils # 4.66 10^3/uL (1.8-7.7); Neutrophils % 60.3 %; Nucleated Red Blood Cells % 0 %; Platelet Count 200 10^3/cmm (130-400); Red Blood Count 4.23 10^6/uL (4.1-5.3); Red Cell Distribution Width 19.1 % (12.1-15.1); White Blood Count 7.7 10^3/uL (4.0-10.0)
[2022-04-07 09:04] VITALS: BP 139/46; PULSE 59; RESP 18; O2SAT 100
[2022-04-07 09:17] LABS: Add Urine Microscopic? YES; Bilirubin Urine Neg (Negative); Blood Urine 2+ (Negative); Glucose Urine UA Norm (Normal); Ketones Urine Negative (Negative); Leukocyte Esterase Urine Trace (Negative); Nitrate Urine Negative (Negative); Protein Urine Neg (Negative); Urine Appearance Clear (CLEAR); Urine Color Yellow (Yellow); Urobilinogen Urine Norm (Negative); pH Urine 7 (5-7)
[2022-04-07 09:27] LABS: Bacteria Urine TRACE /hpf; Mucus Urine TRACE /hpf; RBC Urine 0-4 /hpf (0-2); WBC Urine 0-4 /hpf (0-5)
[2022-04-07 09:28] LABS: Add Urine Culture? No
[2022-04-07 09:45] LABS: Alanine Aminotransferase 7 U/L (0-33); Albumin Level 3.6 g/dL (3.5-5.2); Alkaline Phosphatase 67 IU/L (35-105); Anion Gap 13.6 (5-19); Aspartate Amino Transferase 13 U/L (0-32); Blood Urea Nitrogen 13 mg/dL (8-23); Calcium 8.9 mg/dL (8.5-10.5); Carbon Dioxide 23 mmol/L (22-29); Chloride 107 mmol/L (98-107); Creatine Phosphokinase 62 U/L (26-192); Globulin 3.1 g/dL (1.3-4.6); Glucose 96 mg/dL (65-115); Osmolality Calculated 290 mOsm/kg (285-295); Potassium 3.6 mmol/L (3.5-5.1); Sodium 140 mmol/L (136-145); Total Bilirubin 0.3 mg/dL (0.15-1.2); Total Protein 6.7 g/dL (6.6-8.7); Troponin(5th) Baseline 6 ng/L (0-10)
[2022-04-07 10:27] VITALS: BP 132/53; PULSE 61; RESP 15; O2SAT 100
== END 2022-04-07 10:28 | disposition home or self-care (01) ==
PROVIDERS: Emergency Provider Family Medicine; PCP Family Medicine Adult Medicine
DX: F03.90 Unspecified dementia, unspecified severity, without behavioral disturbance, psychotic disturbance, mood disturbance, and anxiety (principal); Z79.82 Long term (current) use of aspirin; Z79.891 Long term (current) use of opiate analgesic
CPT/HCPCS: 70450; 80053; 81001; 82550; 84484; 85025; 93005; 99284

== ENCOUNTER → 2022-05-15 10:48 | Outpatient (BNVA) | payer MEDICARE, OTHER, SELFPAY | PROVIDERS: PCP Family Medicine Adult Medicine; Visit Provider Family Medicine Adult Medicine | DX: R39.11 Hesitancy of micturition (principal); N39.0 Urinary tract infection, site not specified | CPT/HCPCS: 81000 ==

== ENCOUNTER 2022-08-28 16:14 | Emergency (ER) | payer OTHER, MEDICARE, SELFPAY ==
[2022-08-28 16:22] VITALS: BP 136/59; PULSE 84; RESP 14; TEMP 36.7; O2SAT 98; BMI 19.0
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
[2022-08-28 17:53] VITALS: RESP 15; O2SAT 100
[2022-08-28] MEDS: fentaNYL 50 mcg/mL INJ 2mL 25 MCG IVP (17:53)
[2022-08-28 18:29] LABS: Basophils # 0.1 10^3/uL (0.0-0.1); Basophils % 0.2 %; Eosinophils % 0.1 %; Hematocrit 32.2 % (37.0-47.0); Hemoglobin 10.6 g/dL (11.5-15.3); Lymphocytes # 1.8 10^3/uL (0.8-4.8); Lymphocytes % 8.5 %; Mean Corpuscular HGB Conc 32.9 g/dL (30.0-36.0); Mean Corpuscular Hemoglobin 32.1 pg (28.0-34.0); Mean Corpuscular Volume 97.6 fl (81-99); Mean Platelet Volume 10.6 fL (7.4-10.4); Monocytes % 9.2 %; Neutrophils # 17.62 10^3/uL (1.8-7.7); Neutrophils % 81.3 %; Nucleated Red Blood Cells % 0 %; Platelet Count 225 10^3/cmm (130-400); Red Cell Distribution Width 13.4 % (12.1-15.1); White Blood Count 21.7 10^3/uL (4.0-10.0)
[2022-08-28 18:48] LABS: Sodium 141 mmol/L (136-145)
[2022-08-28 19:08] LABS: Alanine Aminotransferase 25 U/L (0-33); Albumin Level 3.1 g/dL (3.5-5.2); Alkaline Phosphatase 60 U/L (35-105); Anion Gap 14.5 (5-19); Aspartate Amino Transferase 55 U/L (0-32); Blood Urea Nitrogen 26 mg/dL (8-23); Calcium 8.2 mg/dL (8.5-10.5); Carbon Dioxide 23 mmol/L (22-29); Chloride 108 mmol/L (98-107); Globulin 2.6 g/dL (1.3-4.6); Glucose 124 mg/dL (65-115); Osmolality Calculated 298 mOsm/kg (285-295); Potassium 4.5 mmol/L (3.5-5.1); Total Bilirubin 0.2 mg/dL (0.15-1.2); Total Protein 5.7 g/dL (6.6-8.7)
[2022-08-28 19:15] VITALS: BP 117/54; PULSE 95; RESP 16; O2SAT 100
== END 2022-08-28 19:20 ==
PROVIDERS: Nurse Practitioner Family; Emergency Provider Physician Assistant; PCP Nurse Practitioner Family
DX: S22.31XA Fracture of one rib, right side, initial encounter for closed fracture (principal); S22.019A Unspecified fracture of first thoracic vertebra, initial encounter for closed fracture; S22.029A Unspecified fracture of second thoracic vertebra, initial encounter for closed fracture; S51.011A Laceration without foreign body of right elbow, initial encounter; S11.91XA Laceration without foreign body of unspecified part of neck, initial encounter; S80.02XA Contusion of left knee, initial encounter; S80.01XA Contusion of right knee, initial encounter; S70.02XA Contusion of left hip, initial encounter; S70.01XA Contusion of right hip, initial encounter; F03.90 Unspecified dementia, unspecified severity, without behavioral disturbance, psychotic disturbance, mood disturbance, and anxiety; Z79.82 Long term (current) use of aspirin; V49.50XA Passenger injured in collision with unspecified motor vehicles in traffic accident, initial encounter; Z96.649 Presence of unspecified artificial hip joint
CPT/HCPCS: 70450; 71250; 72125; 73562; 74176; 80053; 85025; 96374; 99285; J3010

== ENCOUNTER 2022-09-26 13:32 | Observation (INO) | payer MEDICARE, OTHER, SELFPAY ==
[2022-09-26] VITALS (17 sets, daily range): BP systolic 100–139; BP diastolic 45–70; PULSE 78–93; RESP 12–21; TEMP 36.6–36.9; O2SAT 80–100; BMI 20.7
--- NOTE | 2022-09-26 13:33 | W.ED.AMS ---
HPI - Altered Mental Status General: Chief Complaint: Altered Mental Status Stated Complaint: AMS Time Seen by Provider: 09/26/22 13:33 Limitations: altered mental status History of Present Illness: Ms. Sanders is an 82-year-old lady with apparent history of dementia, hypertension, hyperlipidemia, thyroid disorder presenting to the emergency department due to altered mental status. Was normal yesterday perhaps more tired this morning however had definitive change in mental status after going to the bathroom about 1215 today. Family heard a thud and went to find the patient on the ground. Since that time patient has been nonverbal. No history of similar. History otherwise limited by nonverbal status. Upon supplemental history/clarification by neurology stroke physician last known well was probably actually 2 days ago. At baseline she does have some difficulty following commands and speech abnormality. Review of Systems General: Reports: ROS unobtainable due to mental status PFSH ED PFSH: Medical History Acute hemorrhoid Dementia Dizziness of unknown cause Impacted cerumen, bilateral Multiple somatic complaints Peripheral neuropathic pain Weight loss, non-intentional Surgical History History of hip replacement History of partial hysterectomy Family History Other Cancer Diabetes Social History Alcohol intake: never Household members: spouse Marital status: Current occupational status: retired Physical Exam Const: COMMON NORMALS: alert GENERAL APPEARANCE: cooperative and well developed HENMT: COMMON NORMALS: normocephalic and atraumatic HEAD & SCALP: normocephalic and atraumatic THROAT: posterior oropharynx normal Eye: COMMON NORMALS: conjunctivae normal CONJUNCTIVA: Yes conjunctivae normal SCLERA: sclerae normal Neck/C-Spine: COMMON NORMALS: supple GENERAL: Yes trachea midline Resp: COMMON NORMALS: normal respiratory effort and clear to auscultation bilaterally AUSCULTATION: clear to auscultation bilaterally Cardio: COMMON NORMALS: regular rate and regular rhythm RATE: regular rate RHYTHM: regular rhythm GI: COMMON NORMALS: Soft to palpation PALPATION: Yes Soft to palpation and No Tenderness to palpation present (GI) Extremity: GENERAL: Yes normal exam except as noted and No edema Neuro: COMMON NORMALS: moves all extremities SENSORIUM/ORIENTATION: Yes alert and Yes Orientation impaired Psych: OTHER: Patient appears somnolent and nonverbal. 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 Facial symmetry is symmetric on grimace related to noxious stimuli. No obvious gross focal neurologic findings based on limited exam Course Vital Signs: Vital signs: Vital Signs Temperature 97.5 F L 09/27/22 04:00 Pulse Rate 80 09/27/22 04:00 Respiratory Rate 15 09/27/22 11:20 Blood Pressure 105/57 09/27/22 11:20 Pulse Oximetry 97 09/27/22 04:00 Oxygen Delivery Me thod 09/26/22 21:26 MDM - Altered Mental Status Medical Decision Making 82-year-old lady presenting with strokelike symptoms. Mostly just aphasia though limited neurologic exam secondary to at times appears to be receptive aphasia. CT head negative for acute intracranial hemorrhage or mass. No large vessel occlusion noted on CTA. Laboratory studies negative for acute pathology to explain symptoms. EKG with sinus rhythm, nonspecific ST segment abnormalities, no STEMI. Teleneurology stroke evaluation by [facility] stroke neurologist, no indication for tPA given patient actually likely has had worsening symptoms for days. Upon reassessment patient is able to speak though still seems not at baseline. The results of ED evaluation were discussed with the and family including disposition options. They prefer further inpatient stroke evaluation. I discussed plan for admission due to requirement for level of care not available if discharged to prevent significant worsening/deterioration. Patient agreeable with plan. Discussed with hospitalist service who agreed to admit the patient. Medical Records I reviewed the patient's medical records. Lab Data I reviewed the patient's lab results. : 09/27/22 04:38 09/27/22 04:38 Radiology Impressions Chest X-Ray 09/26/22 13:39 IMPRESSION: Stable COPD . Head/Neck CTA 09/26/22 13:39 IMPRESSION: No large vessel occlusion. IMPRESSION: 1. Dominant left vertebral artery with patent right vertebral artery. 2. Mild right sphenoid sinus disease. 3. No ICA stenosis by NASCET/SRU criteria. REFERENCES: NASCET CRITERIA. The degree of stenosis in the cervical segment of the internal carotid artery is based on NASCET criteria. Normal is no stenosis. Mild is less than 50% stenosis. Moderate is 50-69% stenosis. Severe is 70% to 99% stenosis. Total occlusion is no detectable patent lumen. Laboratory Results WBC 7.3 10^3/uL (4.0-10.0) 09/26/22 13:50 RBC 3.64 10^6/uL (4.1-5.3) L 09/26/22 13:50 Hgb 11.7 g/dL (11.5-15.3) 09/26/22 13:50 Hct 36.2 % (37.0-47.0) L 09/26/22 13:50 MCV 99.5 fl (81-99) H 09/26/22 13:50 MCH 32.1 pg (28.0-34.0) 09/26/22 13:50 MCHC 32.3 g/dL (30.0-36.0) 09/26/22 13:50 RDW 13.7 % (12.1-15.1) 09/26/22 13:50 Plt Count 260 10^3/cmm (130-400) 09/26/22 13:50 MPV 10.7 fL (7.4-10.4) H 09/26/22 13:50 Neut % (Auto) 61.9 % 09/26/22 13:50 Lymph % (Auto) 25.4 % 09/26/22 13:50 [place] % (Auto) 11.1 % 09/26/22 13:50 Eos % (Auto) 0.8 % 09/26/22 13:50 Baso % (Auto) 0.4 % 09/26/22 13:50 Neut # (Auto) 4.52 10^3/uL (1.8-7.7) 09/26/22 13:50 Lymph # (Auto) 1.9 10^3/uL (0.8-4.8) 09/26/22 13:50 [place] # (Auto) 0.8 10^3/uL (0.2-0.9) 09/26/22 13:50 Eos # (Auto) 0.1 10^3/uL (0.0-0.8) 09/26/22 13:50 Baso # (Auto) 0.0 10^3/uL (0.0-0.1) 09/26/22 13:50 Nucleated RBC % (auto) 0 % 09/26/22 13:50 Nucleated RBCs # 0.0 /100WBC 09/26/22 13:50 Specimen Type Arterial 09/26/22 13:56 Sample Site Radial, right 09/26/22 13:56 ABG pH 7.45 (7.35-7.45) 09/26/22 13:56 ABG pCO2 37.5 mmHg (35-45) 09/26/22 13:56 ABG pO2 81.6 mmHg (80.0-100.0) 09/26/22 13:56 ABG HCO3 25.9 mmol/L (22-26) 09/26/22 13:56 ABG Base Excess 1.9 mmol/L (-2.0-2.0) 09/26/22 13:56 Rishabh Test Pos 09/26/22 13:56 Hematocrit 36.1 % (37-47) L 09/26/22 13:56 O2 Delivery Device Room air 09/26/22 13:56 FiO2 21.0 % 09/26/22 13:56 Coin Machine Supervisor ID Monro 09/26/22 13:56 Sodium 133 mmol/L (136-145) L 09/26/22 13:50 Potassium 4.0 mmol/L (3.5-5.1) 09/26/22 13:50 Chloride 98 mmol/L (98-107) 09/26/22 13:50 Carbon Dioxide 26 mmol/L (22-29) 09/26/22 13:50 Anion Gap 13.0 (5-19) 09/26/22 13:50 BUN 20 mg/dL (8-23) 09/26/22 13:50 Creatinine 0.9 mg/dL (0.5-0.9) 09/26/22 13:50 GFR Calculation Not Reportable 09/26/22 13:50 Glucose 103 mg/dL (65-115) 09/26/22 13:50 POC Glucose 109 mg/dL (70-110) 09/26/22 13:57 Calculated Osmolality 279 mOsm/kg (285-295) L 09/26/22 13:50 Calcium 8.9 mg/dL (8.5-10.5) 09/26/22 13:50 Magnesium 2.1 mg/dL (1.7-2.3) 09/26/22 13:50 Total Bilirubin 0.4 mg/dL (0.15-1.2) 09/26/22 13:50 AST 14 U/L (0-32) 09/26/22 13:50 ALT 8 U/L (0-33) 09/26/22 13:50 Alkaline Phosphatase 157 U/L (35-105) H 09/26/22 13:50 Troponin T Baseline 16 ng/L (0-10) H 09/26/22 13:50 Troponin T 120 Minute 15.05 ng/L (0-10) H 09/26/22 15:48 Delta Troponin T -0.95 ABS# (0-10) L 09/26/22 15:48 C-Reactive Protein 3.0 mg/L (0.0-4.9) 09/26/22 13:50 Total Protein 6.4 g/dL (6.6-8.7) L 09/26/22 13:50 Albumin 3.5 g/dL (3.5-5.2) 09/26/22 13:50 Globulin 2.9 g/dL (1.3-4.6) 09/26/22 13:50 Procalcitonin 0.04 ng/mL (0-0.5) 09/26/22 13:50 TSH 1.42 uIU/mL (0.27-4.20) 09/26/22 13:50 Urine Color Straw (Yellow) 09/26/22 17:13 Urine Appearance Clear (CLEAR) 09/26/22 17:13 Urine pH 7 (5-7) 09/26/22 17:13 Ur Specific [place] 1.005 (1.005-1.030) 09/26/22 17:13 Urine Protein Trace (Negative) 09/26/22 17:13 Urine Glucose (UA) Norm (Normal) 09/26/22 17:13 Urine Ketones 1+ (Negative) H 09/26/22 17:13 Urine Blood Neg (Negative) 09/26/22 17:13 Urine Nitrate Negative (Negative) 09/26/22 17:13 Urine Bilirubin Neg (Negative) 09/26/22 17:13 Urine Urobilinogen Norm mg/dL (Negative) 09/26/22 17:13 Ur Leukocyte Esterase Negative (Negative) 09/26/22 17:13 Urine RBC None /hpf (0-2) 09/26/22 17:13 Urine WBC 0-4 /hpf (0-5) H 09/26/22 17:13 Ur Squamous Epith Cells None /hpf (0-5) 09/26/22 17:13 Amorphous Sediment Not Reportable 09/26/22 17:13 Urine Bacteria Trace /hpf (NONE) 09/26/22 17:13 Urine Mucus Trace /hpf 09/26/22 17:13 Salicylates < 0.3 mg/dL (3-10) L 09/26/22 13:50 Urine Opiates Screen Negative ng/mL (Negative) 09/26/22 17:13 Acetaminophen < 5.0 ug/mL (10-30) L 09/26/22 13:50 Ur Barbiturates Screen Negative ng/mL (Negative) 09/26/22 17:13 Ur Phencyclidine Scrn Negative ng/mL (Negative) 09/26/22 17:13 Ur Amphetamines Screen Negative ng/mL (Negative) 09/26/22 17:13 U Benzodiazepines Scrn Negative ng/mL (Negative) 09/26/22 17:13 Urine Cocaine Screen Negative ng/mL (Negative) 09/26/22 17:13 U Marijuana (THC) Screen Negative ng/mL (Negative) 09/26/22 17:13 Discharge Plan Discharge Patient Disposition: Placed in Observation Admit Provider: Bahman Corrales Clinical Impression: Stroke-like symptoms, Altered mental status Coding Level of Care Code ED [employer] for [place] Fwd Exam Comprehensive
--- NOTE | 2022-09-26 13:39 | CTR_ITS ---
PROCEDURE INFORMATION: Exam: CTA Head Without And With Contrast, Arteriography Exam date and time: 09/26/2022 2:09 PM Age: 82 years old Clinical indication: Other: AMS; Additional info: SYEDA, lkw 1215 TECHNIQUE: Imaging protocol: Computed tomographic angiography of the head without and with contrast. Exam focused on the arteries. 3D rendering (Not supervised by radiologist): MIP and/or 3D reconstructed images were created by the technologist. Radiation optimization: All CT scans at this facility use at least one of these dose optimization techniques: automated exposure control; mA and/or kV adjustment per patient size (includes targeted exams where dose is matched to clinical indication); or iterative reconstruction. Contrast material: OMNI 350; Contrast volume: 100 ml; Contrast route: INTRAVENOUS (IV); COMPARISON: CT head wo con* [id number] 08/28/2022 4:44 PM RADIATION DOSE METRICS: Total DLP (mGy-cm): 896.98 FINDINGS: ANTERIOR CIRCULATION: Right internal carotid artery: Calcified plaque in the right cavernous ICA without significant stenosis. Right middle cerebral artery: No occlusion or significant stenosis. No aneurysm. Right anterior cerebral artery: No occlusion or significant stenosis. No aneurysm. Anterior communicating artery: Patent anterior communicating artery. Left internal carotid artery: Calcified plaque in the left cavernous ICA without significant stenosis. Left middle cerebral artery: No occlusion or significant stenosis. No aneurysm. Left anterior cerebral artery: No occlusion or significant stenosis. No aneurysm. POSTERIOR CIRCULATION: Right vertebral artery: See Left vertebral artery finding. Left vertebral artery: Dominant left vertebral artery with patent right vertebral artery. Basilar artery: No occlusion or significant stenosis. No aneurysm. Right posterior cerebral artery: No occlusion or significant stenosis. No aneurysm. Left posterior cerebral artery: No occlusion or significant stenosis. No aneurysm. HEAD: Brain: Severe calcified intracranial atherosclerotic vessel disease. Mild cerebral atrophy and ischemic leukoencephalopathy. Cerebral ventricles: Normal. No ventriculomegaly. Bones/joints: Unremarkable. No acute fracture. Paranasal sinuses: Visualized sinuses are normal. No fluid levels. Mastoid air cells: Visualized mastoids are normal. No mastoid effusion. Soft tissues: Unremarkable. Other findings: No large vessel occlusion. PROCEDURE INFORMATION: Exam: CTA Neck With Contrast Exam date and time: 09/26/2022 2:09 PM Age: 82 years old Clinical indication: Other: AMS; Additional info: SYEDA, lkjo-ann 1215 TECHNIQUE: Imaging protocol: Computed tomographic angiography of the neck with contrast. 3D rendering (Not supervised by radiologist): MIP and/or 3D reconstructed images were created by the technologist. Radiation optimization: All CT scans at this facility use at least one of these dose optimization techniques: automated exposure control; mA and/or kV adjustment per patient size (includes targeted exams where dose is matched to clinical indication); or iterative reconstruction. Contrast material: OMNI 350; Contrast volume: 100 ml; Contrast route: INTRAVENOUS (IV); COMPARISON: CT cervical spin wo con* [id number] 08/28/2022 4:44 PM RADIATION DOSE METRICS: Total DLP (mGy-cm): 896.98 FINDINGS: Right common carotid artery: Right carotid bifurcation calcified plaque. Right internal carotid artery: S shaped tortuosity of the right ICA without kinking. Right external carotid artery: No occlusion or stenosis of the origin. Left common carotid artery: Left carotid bifurcation calcified plaque. Left internal carotid artery: S shaped tortuosity of the left ICA. Left external carotid artery: No occlusion or stenosis of the origin. Right vertebral artery: See Left vertebral artery finding. Left vertebral artery: Dominant left vertebral artery with patent right vertebral artery. Aorta: Calcification of the thoracic aorta and/or great vessels consistent with atherosclerotic vessel disease. Paranasal sinuses: Mild right sphenoid sinus disease. Dental: Examination is limited secondary to metallic artifact from dental fillings and/or dental hardware. Soft tissues: Normal. No significant soft tissue swelling. Bones/joints: Moderate to severe multilevel spine degenerative changes including degenerative disc disease, spondylosis and facet degenerative changes. Postoperative metallic fixation of the cervical spine with or without metallic artifact. Levoscoliosis. Multilevel bilateral foraminal stenosis. Other findings: No ICA stenosis by NASCET/SRU criteria. CT/CT angio headneck* [id number] IMPRESSION: No large vessel occlusion. IMPRESSION: 1. Dominant left vertebral artery with patent right vertebral artery. 2. Mild right sphenoid sinus disease. 3. No ICA stenosis by NASCET/SRU criteria. REFERENCES: NASCET CRITERIA. The degree of stenosis in the cervical segment of the internal carotid artery is based on NASCET criteria. Normal is no stenosis. Mild is less than 50% stenosis. Moderate is 50-69% stenosis. Severe is 70% to 99% stenosis. Total occlusion is no detectable patent lumen.
--- NOTE | 2022-09-26 13:39 | XRR_ITS ---
PROCEDURE INFORMATION: Exam: XR Chest Exam date and time: 09/26/2022 1:56 PM Age: 82 years old Clinical indication: Other: AMS TECHNIQUE: Imaging protocol: Radiologic exam of the chest. Views: 1 view. COMPARISON: [place] [id number] 08/28/2022 4:50 PM FINDINGS: Tubes, catheters and devices: Stable postoperative metallic fixation of the cervical spine with or without metallic artifact. Lungs: Stable COPD . Pleural spaces: Unremarkable. No pleural effusion. No pneumothorax. Heart/Mediastinum: Unremarkable. No cardiomegaly. Vasculature: Calcification of the thoracic aorta and/or great vessels consistent with atherosclerotic vessel disease. Bones/joints: Unremarkable. XR/XR chest 1V portable [id number] IMPRESSION: Stable COPD .
--- NOTE | 2022-09-26 13:40 | ECG_ITS ---
[facility] Test Date: 2022-09-26 Pat Name: Samira Sanders Department: Room: Gender: Female [employer] Analyst: : 1940 Requested By: James Quintero Order Number: [id number] Fabi MD: Antonio Bourne M.D. Measurements Intervals [place] Rate: 83 P: 83 W[place]: 143 QRS: 61 QRSD: 84 T: 95 QT: 369 QTc: 434 Interpretive Statements SINUS RHYTHM MINIMAL ST DEPRESSION [0.025+ mV ST DEPRESSION] Compared to ECG 04/07/2022 08:59:21 ST (T wave) deviation now present Sinus bradycardia no longer present Sinus arrhythmia no longer present Myocardial infarct finding no longer present Electronically Signed On 09-27-2022 10:14:45 CDT by Antonio Bourne M.D. [id number] f
[2022-09-26 14:00] LABS: Glucose Point of Care 109 mg/dL (70-110)
[2022-09-26 14:08] LABS: ABG PCO2 37.5 mmHg (35-45); ABG PH Result 7.45 (7.35-7.45); Arterial Blood Gas Hematocrit 36.1 % (37-47); Base Excess ABG 1.9 mmol/L (-2.0-2.0); Blood Gas Allen Test Pos; Blood Gas Operator Identificat MONRO; Blood Gas Sample Site Radial, right; Blood Gas Sample Type Arterial; HCO3 ABG 25.9 mmol/L (22-26); Oxygen Device ROOM AIR; PO2 ABG 81.6 mmHg (80.0-100.0)
[2022-09-26 14:16] LABS: Basophils % 0.4 %; Eosinophils # 0.1 10^3/uL (0.0-0.8); Eosinophils % 0.8 %; Hematocrit 36.2 % (37.0-47.0); Hemoglobin 11.7 g/dL (11.5-15.3); Lymphocytes # 1.9 10^3/uL (0.8-4.8); Lymphocytes % 25.4 %; Mean Corpuscular HGB Conc 32.3 g/dL (30.0-36.0); Mean Corpuscular Hemoglobin 32.1 pg (28.0-34.0); Mean Corpuscular Volume 99.5 fl (81-99); Mean Platelet Volume 10.7 fL (7.4-10.4); Monocytes # 0.8 10^3/uL (0.2-0.9); Monocytes % 11.1 %; Neutrophils # 4.52 10^3/uL (1.8-7.7); Neutrophils % 61.9 %; Nucleated Red Blood Cells % 0 %; Platelet Count 260 10^3/cmm (130-400); Red Blood Count 3.64 10^6/uL (4.1-5.3); Red Cell Distribution Width 13.7 % (12.1-15.1); White Blood Count 7.3 10^3/uL (4.0-10.0)
[2022-09-26] MEDS: iohexol 350 mg/mL 100 mL Btl IV (14:17)
[2022-09-26 14:47] LABS: Troponin(5th) Baseline 16 ng/L (0-10)
[2022-09-26 14:52] LABS: Procalcitonin 0.04 ng/mL (0-0.5); Thyroid Stimulating Hormone 1.42 uIU/mL (0.27-4.20)
[2022-09-26 15:03] LABS: Alanine Aminotransferase 8 U/L (0-33); Albumin Level 3.5 g/dL (3.5-5.2); Alkaline Phosphatase 157 U/L (35-105); Aspartate Amino Transferase 14 U/L (0-32); Blood Urea Nitrogen 20 mg/dL (8-23); Calcium 8.9 mg/dL (8.5-10.5); Carbon Dioxide 26 mmol/L (22-29); Chloride 98 mmol/L (98-107); Globulin 2.9 g/dL (1.3-4.6); Glucose 103 mg/dL (65-115); Magnesium 2.1 mg/dL (1.7-2.3); Osmolality Calculated 279 mOsm/kg (285-295); Sodium 133 mmol/L (136-145); Total Bilirubin 0.4 mg/dL (0.15-1.2); Total Protein 6.4 g/dL (6.6-8.7)
[2022-09-26 15:05] LABS: Acetaminophen < 5.0 ug/mL (10-30); Salicylate < 0.3 mg/dL (3-10)
[2022-09-26 16:48] LABS: Troponin 5 2HR 15.05 ng/L (0-10)
[2022-09-26 17:01] LABS: Troponin 5 2HR Delta -0.95 ABS# (0-10)
--- NOTE | 2022-09-26 17:21 | ECG_ITS ---
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 Measurements Intervals [place] Rate: 87 P: 79 SD: 151 QRS: 61 QRSD: 74 T: 107 QT: 355 QTc: 429 Interpretive Statements SINUS RHYTHM NONSPECIFIC ST & T-WAVE ABNORMALITY Compared to ECG 09/26/2022 13:59:34 T-wave abnormality now present ST (T wave) deviation no longer present Electronically Signed On 09-27-2022 10:18:15 CDT by Antonio Bourne M.D. [id number]
[2022-09-26 17:29] LABS: Amphetamines Screen Urine Negative (Negative); Barbiturates Screen Urine Negative (Negative); Benzodiazepines Screen Urine Negative (Negative); Cocaine Screen Urine Negative (Negative); Opiate Screen Urine Negative (Negative); PCP Screen Urine Negative (Negative); THC Screen Urine Negative (Negative)
[2022-09-26 17:40] LABS: Specific Gravity, Urine 1.005 (1.005-1.030); Urine Appearance Clear (CLEAR); Urine Color Straw (Yellow); pH Urine 7 (5-7)
[2022-09-26 17:41] LABS: Add Urine Culture? No; Add Urine Microscopic? YES; Bacteria Urine TRACE /hpf; Bilirubin Urine Neg (Negative); Blood Urine Neg (Negative); Glucose Urine UA Norm (Normal); Ketones Urine 1+ (Negative); Leukocyte Esterase Urine Negative (Negative); Mucus Urine TRACE /hpf; Nitrate Urine Negative (Negative); Protein Urine Trace (Negative); Urobilinogen Urine Norm (Negative); WBC Urine 0-4 /hpf (0-5)
--- NOTE | 2022-09-26 18:47 | P.HP_ITS ---
Providers/Chief Complaint Primary Care Provider: Kelsey Cedillo APN Chief Complaint: AMS History of Present Illness Samira Sanders is a 82 year old female with past medical history of hypertension, dementia , hypothyroidism , dizziness of unknown etiology , Was brought in from home after his found her down on the ground in the bathroom at around noon, according to the family she was out for quite some time, once he regained consciousness she has been more incoherent, at baseline she is more interactive, patient is hard of heari ng, she likely also has advanced dementia, as well as known dizziness of unkown etiology. According to her , prior to the episode she denied any chest pain shortness of breath, headache fever cough nausea vomiting, abdominal pain. When she arrived in the ER she was worked up for strokelike symptoms. Pertinent imaging studies CT head and CTA head and neck: No acute findings Her other vitals and labs have been reviewed. Review of Systems 2 General: Reports: ROS unobtainable due to mental status Medications/Allergies Home Medications Medication Instructions Recorded Confirmed Last Taken Type aspirin 81 mg tablet,delayed 81 mg PO DAILY #30 tabs 02/03/22 09/26/22 09/26/22 Rx release acetaminophen 650 mg 650 mg PO Q12H PRN pain #100 tabs 05/20/22 09/26/22 Unknown Rx tablet,extended release cetirizine 10 mg tablet 10 mg PO DAILY 08/28/22 09/26/22 09/26/22 History famotidine 20 mg tablet 20 mg PO DAILY 08/28/22 09/26/22 09/26/22 History levothyroxine 100 mcg tablet 100 mcg PO DAILY 08/28/22 09/26/22 09/26/22 History meloxicam 7.5 mg tablet 7.5 mg PO DAILY 08/28/22 09/26/22 09/25/22 History tramadol 50 mg tablet 25 - 50 mg PO Q4H 08/28/22 09/26/22 Unknown History meclizine 12.5 mg tablet 12.5 mg PO Q6H PRN dizziness 09/26/22 09/26/22 Unknown History triamterene 37.5 1 tab PO DAILY PRN Edema 09/26/22 09/26/22 09/26/22 History mg-hydrochlorothiazide 25 mg tablet Allergies Allergy/AdvReac Type Severity Reaction Status Date / Time Sulfa (Sulfonamide Allergy Unknown Verified 08/28/22 16:41 Antibiotics) PFSH Acute PFSH: Medical History Acute hemorrhoid Dementia Dizziness of unknown cause Impacted cerumen, bilateral Multiple somatic complaints Peripheral neuropathic pain Weight loss, non-intentional Surgical History History of hip replacement History of partial hysterectomy Family History Other Cancer Diabetes Social History Alcohol intake: never Household members: spouse Marital status: Current occupational status: retired Vitals/I&O/Wt Last Vital Signs Temp 98 F 09/26/22 13:51 Pulse 93 09/26/22 17:45 Resp 12 09/26/22 17:45 BP 109/45 09/26/22 17:45 Pulse Ox 100 09/26/22 17:45 O2 Del Method 09/26/22 13:51 Weight last 48 hrs Weight 56.699 kg Physical Exam Resp: COMMON NORMALS: clear to auscultation bilaterally AUSCULTATION: clear to auscultation bilaterally Cardio: COMMON NORMALS: regular rate, regular rhythm, S1 normal heart sound present, S2 normal heart sound present, No gallops present (Cardio), No murmurs present (Cardio), No rub (Cardio) and Peripheral pulses 2+ throughout RATE: regular rate RHYTHM: regular rhythm HEART SOUNDS: S1 normal heart sound present and S2 normal heart sound present PERIPHERAL PULSES: Peripheral pulses 2+ throughout GI: COMMON NORMALS: Normal to inspection, nondistended, normoactive bowel soun ds present, Soft to palpation, non-tender, No hepatosplenomegaly present and no masses AUSCULTATION: Yes normoactive bowel sounds PALPATION: Yes Soft to palpation and Yes No hepatosplenomegaly present RECTAL EXAM: deferred Extremity: COMMON NORMALS: no clubbing, cyanosis or edema and no pedal edema Data : 09/26/22 13:50 09/26/22 13:50 Micro: Microbiology 09/26/22 15:00 Blood Culture - Preliminary Blood SPECIMEN COLLECTED 09/26/22 14:55 Blood Culture - Preliminary Blood SPECIMEN COLLECTED A&P Assessment and plan (1) Stroke-like symptoms: (2) Altered mental status: (3) Dizziness of unknown cause: (4) Dementia: (5) Hypothyroidism: Qualifiers: Hypothyroidism type: unspecified Qualified Code(s): E03.9 - Hypothyroidism, unspecified (6) Hyperlipidemia: Qualifiers: Hyperlipidemia type: mixed hyperlipidemia Qualified Code(s): E78.2 - Mixed hyperlipidemia (7) Hypertension: Plan 82 year old female with past medical history of hypertension, dementia , h ypothyroidism , dizziness of unknown etiology , Was brought in from home after his found her down on the ground in the bathroom at around noon, according to the family she was out for quite some time, once he regained consciousness she has been more incoherent, at baseline she is more interactive. Assessment: Likely syncope Stroke like symptoms Altered mental status possibly secondary to TIA Hypertension Hypothyroidism Dizziness of unknown known etiology Dementia Plan: Continue aspirin, statin Telemetry monitoring Follow 2D echo Follow-up TSH Follow blood culture Urinalysis is clean Neuro check every 4 hours Fall precaution Continue levothyroxine CODE STATUS: Full code Attestations Medical Necessity Statement*: Patient needs to be in hospital for management of strokelike symptoms. Time Spent in Patient Care: Greater than 35 minutes (>than 50% of time spent in counselling and/or direct pt care on unit) . Coding Level of Care Code Acute [place] [employer] for [place] C[place] Diagnoses Stroke-like symptoms R29.90 Altered mental status R41.82 Dizziness of unknown cause R42 Dementia F03.90 Hypothyroidism E03.9 Hypothyroidism type: unspecified Hyperlipidemia E78.2 Hyperlipidemia type: mixed hyperlipidemia Hypertension I10
--- NOTE | 2022-09-26 18:48 | USCV_ITS ---
Samira Sanders Age: 82 Gender: F : 1940 Exam Date: 09/26/2022 19:06 Ordering Phys: Bahman Corrales MD Technologist: Alicia Little Exam Location: [facility] [place] Indication: CVA vs TIA BP: 108 / 52 HR: 83 Rhythm: Sinus Technical Quality: Poor MEASUREMENTS (Male / Female) Normal Values 2D ECHO LV Diastolic Diameter PLAX 2.5 cm 4.2 - 5.9 / 3.9 - 5.3 cm LV Systolic Diameter PLAX 1.3 cm LV Chamber Size 2.2 cm IVS Diastolic Thickness 0.9 cm 0.6 - 1.0 / 0.6 - 0.9 cm IVS Systolic Thickness 1.0 cm LVPW Diastolic Thickness 1.0 cm 0.6 - 1.0 / 0.6 - 0.9 cm LVPW Systolic Thickness 1.2 cm RV Chamber Size 1.9 cm LVOT Diameter 2.0 cm LV Ejection Fraction 2D Teich 79.2 % LV Ejection Fraction MOD 2C 81.1 % LV Ejection Fraction 2C AL 81.5 % LA Diameter 1.6 cm LA Width 2.0 cm LA Height 1.8 cm RA Width 2.9 cm RA Height 2.9 cm Aorta at Sinotubular Diameter 2.6 cm IVC Diameter 1.0 cm M-MODE Aortic Annulus Diameter 3.0 cm LA Ao Ratio MM 0.6 MV E Point Septal Separation 0.4 cm DOPPLER AV Peak Velocity 151.0 cm/s LVOT Peak Velocity 109.0 cm/s AV Area Cont Eq vti 2.3 cm squared AV Area Cont Eq pk 2.3 cm squared MV Area PHT 5.1 cm squared Mitral E to A Ratio 0.7 MV E' Velocity 36.5 cm/s Mitral E to MV E' Ratio 9.1 Mitral E to LV E' Lateral Ratio 9.1 Mitral E to LV E' Septal Ratio 9.1 TR Peak Velocity 222.4 cm/s TR Peak Gradient 19.8 mmHg TR Mean Velocity 164.4 cm/s TR Mean Gradient 11.9 mmHg TR Velocity Time Integral 47.3 cm TV Peak E Velocity 60.0 cm/s Right Atrial Pressure 3.0 mmHg Pulmonary Artery Systolic Pressu 22.8 mmHg RV Acceleration Time 0.1 s RV Ejection Time 0.3 s RV AcT/ET 0.4 FINDINGS Left Ventricle Technically poor quality study with poor imaging. The left ventricle is probably normal in size and function though this is difficult to assess. The overall ejection fraction is likely within normal limits. Cannot assess wall motion disturbances. Grade 1 diastolic dysfunction. Right Ventricle Normal right ventricular size and systolic function. Right Atrium The right atrium is normal in size. Left Atrium The left atrium is normal in size. Mitral Valve Mitral valve not well visualized. Aortic Valve Aortic valve not well visualized. Tricuspid Valve Tricuspid valve not well visualized. Pulmonic Valve Pulmonic valve not well visualized. Pericardium Normal pericardium without effusion. Aorta Aorta not well visualized. IVC Inferior vena cava not visualized. CONCLUSIONS Technically poor quality study with poor imaging. The left ventricle is probably normal in size and function though this is difficult to assess. The overall ejection fraction is likely within normal limits. Cannot assess wall motion disturbances. Grade 1 diastolic dysfunction. There are no prior echocardiogram studies to compare. Dr. Antonio Bourne MD (Electronically Signed) Final Date: 27 September 2022 09:06 S
[2022-09-26] MEDS: sodium chloride 0.9% 1,000 ML 50 ML IV (19:28)
--- NOTE | 2022-09-26 20:31 | PC.NURSE ---
report called to floor, patient assigned to room 253-2. Patient transported to floor via technologist development. Family at bedside.
[2022-09-27] VITALS: BP 124/62; PULSE 77; RESP 15; TEMP 36.6; O2SAT 97
--- NOTE | 2022-09-27 00:45 | PC.NURSE ---
Approximately 2114 the patient's family reported the patient rolled over and pulled her IV out. This nurse went to bedside and it was noted the IV was removed and catheter was intact. Cotton ball and band aid applied to left AC. Patient tolerated well. When approached a little while later the patient became combative with staff and refused a second IV inserted. The patient was then left alone to calm. When approached later, she continued to refuse. To prevent harm to patient or staff from injury with patient becoming irritated, it was decided by this nurse, charge nurse, and hospitalist to let the patient sleep.
[2022-09-27 04:00] VITALS: BP 150/72; PULSE 80; RESP 16; TEMP 36.4; O2SAT 97
[2022-09-27 05:12] LABS: Basophils % 0.4 %; Eosinophils % 0.5 %; Hematocrit 34.1 % (37.0-47.0); Hemoglobin 10.9 g/dL (11.5-15.3); Lymphocytes # 1.8 10^3/uL (0.8-4.8); Mean Corpuscular Hemoglobin 32.1 pg (28.0-34.0); Mean Corpuscular Volume 100.3 fl (81-99); Mean Platelet Volume 10.7 fL (7.4-10.4); Monocytes # 0.8 10^3/uL (0.2-0.9); Neutrophils # 4.94 10^3/uL (1.8-7.7); Neutrophils % 64.8 %; Nucleated Red Blood Cells % 0 %; Platelet Count 231 10^3/cmm (130-400); Red Cell Distribution Width 13.6 % (12.1-15.1); White Blood Count 7.6 10^3/uL (4.0-10.0)
[2022-09-27 05:42] LABS: Anion Gap 12.7 (5-19); Blood Urea Nitrogen 20 mg/dL (8-23); Calcium 8.9 mg/dL (8.5-10.5); Carbon Dioxide 25 mmol/L (22-29); Chloride 104 mmol/L (98-107); Glucose 121 mg/dL (65-115); Magnesium 2.2 mg/dL (1.7-2.3); Osmolality Calculated 290 mOsm/kg (285-295); Phosphorus 3.4 mg/dL (2.5-4.5); Potassium 3.7 mmol/L (3.5-5.1); Sodium 138 mmol/L (136-145); Thyroid Stimulating Hormone 1.01 uIU/mL (0.27-4.20)
[2022-09-27 08:00] VITALS: BP 105/57; RESP 15
[2022-09-27] MEDS: levothyroxine 100 mcg Tablet PO (09:48)
[2022-09-27] MEDS: aspirin 81 mg EC Tablet PO (09:48)
[2022-09-27] MEDS: famotidine 20 mg Tablet PO (09:49)
[2022-09-27 09:50] VITALS: BP 100/63; BP 110/68
--- NOTE | 2022-09-27 10:17 | PC.NURSE ---
pt was unable to stay standing during the standing part of the ortho vitals the nurse was notified
--- NOTE | 2022-09-27 10:48 | PM.DCS ---
Discharge Providers Date of Admission: 09/26/22 18:41 Date of Discharge: September 27, 2022 Attending Provider at Admission: Bahman Corrales MD Attending Provider at Discharge: Bahman Corrales MD Primary Care Provider: Kelsey Cedillo APN Diagnoses at Discharge Discharge Diagnosis (1) Stroke-like symptoms: Status: Acute (2) Altered mental status: Status: Acute (3) Dizziness of unknown cause: Status: Acute (4) Dementia: Status: Acute (5) Hypothyroidism: Status: Acute Qualifiers: Hypothyroidism type: unspecified Qualified Code(s): E03.9 - Hypothyroidism, unspecified (6) Hyperlipidemia: Status: Acute Qualifiers: Hyperlipidemia type: mixed hyperlipidemia Qualified Code(s): E78.2 - Mixed hyperlipidemia (7) Hypertension: Status: Acute Reason for Visit Reason for Visit: [facility] Hospital Course Hospital Course HPI: Samira Sanders is a 82 year old female with past medical history of hypertension, dementia , hypothyroidism , dizziness of unknown etiology , Was brought in from home after his found her down on the ground in the bathroom at around noon, according to the family she was out for quite some time, once he regained consciousness she has been more incoherent, at baseline she is more interactive, patient is hard of hearing, she likely also has advanced dementia, as well as known dizziness of unkown etiology. According to her , prior to the episode she denied any chest pain shortness of breath, headache fever cough nausea vomiting, abdominal pain. When she arrived in the ER she was worked up for strokelike symptoms. Pertinent imaging studies CT head and CTA head and neck: No acute findings Patient was admitted for the management of: Likely syncope, initial concern on admission was possible TIA, altered mental status possibly secondary to TIA, chronic dizziness, hypertension, dementia. Patient was observed overnight, gentle IV hydration was done to maintain a decent MAP, permissive hypertension was allowed, 2D echo was done: Technically difficult study: With likely normal EF, LV normal size. At the time of discharge patient was at her baseline mentation, she was continued on her home medicine including meclizine for chronic dizziness, she is on aspirin at home, Lipitor was started, Given the fact that her blood pressure has been running soft, patient has been advised to hold her antihypertensive for a week and monitor the blood pressure at home, once the systolic blood pressure remains in 130s and diastolic in the 70s, they may resume the antihypertensives. Best thing going forward will be to maintain a blood pressure log for some time and visit to the primary care physician with a log regarding initiation of antihypertensive. Overall patient has responded well to above medical management and she was discharged in stable condition to home. She will continue to follow with her primary care physician as outpatient. Physical Exam Narrative: Alert and awake very hard of hearing Resp: COMMON NORMALS: clear to auscultation bilaterally AUSCULTATION: clear to auscultation bilaterally Cardio: COMMON NORMALS: regular rate, regular rhythm, S1 normal heart sound present, S2 normal heart sound present, No gallops present (Cardio), No murmurs present (Cardio), No rub (Cardio) and Peripheral pulses 2+ throughout RATE: regular rate RHYTHM: regular rhythm HEART SOUNDS: S1 normal heart sound present and S2 normal heart sound present PERIPHERAL PULSES: Peripheral pulses 2+ throughout GI: COMMON NORMALS: Normal to inspection, nondistended, normoactive bowel sounds present, Soft to palpation, non-tender, No hepatosplenomegaly present and no masses AUSCULTATION: Yes normoactive bowel sounds PALPATION: Yes Soft to palpation and Yes No hepatosplenomegaly present RECTAL EXAM: deferred Extremity: COMMON NORMALS: no clubbing, cyanosis or edema and no pedal edema Discharge Data Studies Completed and Pending Completed Studies During Hospitalization Category Date Time Status CT angio headneck* [id number] Stat Cat Scan 09/26/22 13:39 Completed XR chest 1V portable [id number] Stat Exams 09/26/22 13:39 Completed CV. echo complete* [id number] Routine Ultrasound 09/26/22 18:48 Completed Pending at discharge Category Date Time Status Basic Metabolic Panel AM LABS Lab 09/28/22 04:00 Ordered Basic Metabolic Panel AM LABS Lab 09/29/22 04:00 Ordered Blood Culture Stat Lab 09/26/22 15:00 Results Complete Blood Count w/Auto AM LABS Lab 09/28/22 04:00 Ordered Complete Blood Count w/Auto AM LABS Lab 09/29/22 04:00 Ordered Radiology Impressions Chest X-Ray 09/26/22 13:39 IMPRESSION: Stable COPD . Head/Neck CTA 09/26/22 13:39 IMPRESSION: No large vessel occlusion. IMPRESSION: 1. Dominant left vertebral artery with patent right vertebral artery. 2. Mild right sphenoid sinus disease. 3. No ICA stenosis by NASCET/SRU criteria. REFERENCES: NASCET CRITERIA. The degree of stenosis in the cervical segment of the internal carotid artery is based on NASCET criteria. Normal is no stenosis. Mild is less than 50% stenosis. Moderate is 50-69% stenosis. Severe is 70% to 99% stenosis. Total occlusion is no detectable patent lumen. Laboratory Results WBC 7.6 10^3/uL (4.0-10.0) 09/27/22 04:38 RBC 3.40 10^6/uL (4.1-5.3) L 09/27/22 04:38 Hgb 10.9 g/dL (11.5-15.3) L 09/27/22 04:38 Hct 34.1 % (37.0-47.0) L 09/27/22 04:38 MCV 100.3 fl (81-99) H 09/27/22 04:38 MCH 32.1 pg (28.0-34.0) 09/27/22 04:38 MCHC 32.0 g/dL (30.0-36.0) 09/27/22 04:38 RDW 13.6 % (12.1-15.1) 09/27/22 04:38 Plt Count 231 10^3/cmm (130-400) 09/27/22 04:38 MPV 10.7 fL (7.4-10.4) H 09/27/22 04:38 Neut % (Auto) 64.8 % 09/27/22 04:38 Lymph % (Auto) 23.0 % 09/27/22 04:38 Wilkes % (Auto) 11.0 % 09/27/22 04:38 Eos % (Auto) 0.5 % 09/27/22 04:38 Baso % (Auto) 0.4 % 09/27/22 04:38 Neut # (Auto) 4.94 10^3/uL (1.8-7.7) 09/27/22 04:38 Lymph # (Auto) 1.8 10^3/uL (0.8-4.8) 09/27/22 04:38 Wilkes # (Auto) 0.8 10^3/uL (0.2-0.9) 09/27/22 04:38 Eos # (Auto) 0.0 10^3/uL (0.0-0.8) 09/27/22 04:38 Baso # (Auto) 0.0 10^3/uL (0.0-0.1) 09/27/22 04:38 Nucleated RBC % (auto) 0 % 09/27/22 04:38 Nucleated RBCs # 0.0 /100WBC 09/27/22 04:38 Specimen Type Arterial 09/26/22 13:56 Sample Site Radial, right 09/26/22 13:56 ABG pH 7.45 (7.35-7.45) 09/26/22 13:56 ABG pCO2 37.5 mmHg (35-45) 09/26/22 13:56 ABG pO2 81.6 mmHg (80.0-100.0) 09/26/22 13:56 ABG HCO3 25.9 mmol/L (22-26) 09/26/22 13:56 ABG Base Excess 1.9 mmol/L (-2.0-2.0) 09/26/22 13:56 Rishabh Test Pos 09/26/22 13:56 Hematocrit 36.1 % (37-47) L 09/26/22 13:56 O2 Delivery Device Room air 09/26/22 13:56 FiO2 21.0 % 09/26/22 13:56 Cigar Wrapper Tender Automatic ID [place] 09/26/22 13:56 Sodium 138 mmol/L (136-145) 09/27/22 04:38 Potassium 3.7 mmol/L (3.5-5.1) 09/27/22 04:38 Chloride 104 mmol/L (98-107) 09/27/22 04:38 Carbon Dioxide 25 mmol/L (22-29) 09/27/22 04:38 Anion Gap 12.7 (5-19) 09/27/22 04:38 BUN 20 mg/dL (8-23) 09/27/22 04:38 Creatinine 1.0 mg/dL (0.5-0.9) H 09/27/22 04:38 GFR Calculation Not Reportable 09/27/22 04:38 Glucose 121 mg/dL (65-115) H 09/27/22 04:38 POC Glucose 109 mg/dL (70-110) 09/26/22 13:57 Calculated Osmolality 290 mOsm/kg (285-295) 09/27/22 04:38 Calcium 8.9 mg/dL (8.5-10.5) 09/27/22 04:38 Phosphorus 3.4 mg/dL (2.5-4.5) 09/27/22 04:38 Magnesium 2.2 mg/dL (1.7-2.3) 09/27/22 04:38 Total Bilirubin 0.4 mg/dL (0.15-1.2) 09/26/22 13:50 AST 14 U/L (0-32) 09/26/22 13:50 ALT 8 U/L (0-33) 09/26/22 13:50 Alkaline Phosphatase 157 U/L (35-105) H 09/26/22 13:50 Troponin T Baseline 16 ng/L (0-10) H 09/26/22 13:50 Troponin T 120 Minute 15.05 ng/L (0-10) H 09/26/22 15:48 Delta Troponin T -0.95 ABS# (0-10) L 09/26/22 15:48 Troponin T Hi Sens 6Hr 18.20 ng/L (0-10) H 09/26/22 19:40 Troponin T Hi Sens 6Hr Delta 2.20 ng/L (0-12) 09/26/22 19:40 C-Reactive Protein 3.0 mg/L (0.0-4.9) 09/26/22 13:50 Total Protein 6.4 g/dL (6.6-8.7) L 09/26/22 13:50 Albumin 3.5 g/dL (3.5-5.2) 09/26/22 13:50 Globulin 2.9 g/dL (1.3-4.6) 09/26/22 13:50 Procalcitonin 0.04 ng/mL (0-0.5) 09/26/22 13:50 TSH 1.01 uIU/mL (0.27-4.20) 09/27/22 04:38 Urine Color Straw (Yellow) 09/26/22 17:13 Urine Appearance Clear (CLEAR) 09/26/22 17:13 Urine pH 7 (5-7) 09/26/22 17:13 Ur Specific [place] 1.005 (1.005-1.030) 09/26/22 17:13 Urine Protein Trace (Negative) 09/26/22 17:13 Urine Glucose (UA) Norm (Normal) 09/26/22 17:13 Urine Ketones 1+ (Negative) H 09/26/22 17:13 Urine Blood Neg (Negative) 09/26/22 17:13 Urine Nitrate Negative (Negative) 09/26/22 17:13 Urine Bilirubin Neg (Negative) 09/26/22 17:13 Urine Urobilinogen Norm mg/dL (Negative) 09/26/22 17:13 Ur Leukocyte Esterase Negative (Negative) 09/26/22 17:13 Urine RBC None /hpf (0-2) 09/26/22 17:13 Urine WBC 0-4 /hpf (0-5) H 09/26/22 17:13 Ur Squamous Epith Cells None /hpf (0-5) 09/26/22 17:13 Amorphous Sediment Not Reportable 09/26/22 17:13 Urine Bacteria Trace /hpf (NONE) 09/26/22 17:13 Urine Mucus Trace /hpf 09/26/22 17:13 Salicylates < 0.3 mg/dL (3-10) L 09/26/22 13:50 Urine Opiates Screen Negative ng/mL (Negative) 09/26/22 17:13 Acetaminophen < 5.0 ug/mL (10-30) L 09/26/22 13:50 Ur Barbiturates Screen Negative ng/mL (Negative) 09/26/22 17:13 Ur Phencyclidine Scrn Negative ng/mL (Negative) 09/26/22 17:13 Ur Amphetamines Screen Negative ng/mL (Negative) 09/26/22 17:13 U Benzodiazepines Scrn Negative ng/mL (Negative) 09/26/22 17:13 Urine Cocaine Screen Negative ng/mL (Negative) 09/26/22 17:13 U Marijuana (THC) Screen Negative ng/mL (Negative) 09/26/22 17:13 Vitals Last Vital Signs Temp 97.5 F L 09/27/22 04:00 Pulse 80 09/27/22 04:00 Resp 15 09/27/22 08:00 BP 110/68 09/27/22 09:50 Pulse Ox 97 09/27/22 04:00 O2 Del Method 09/26/22 21:26 Discharge Plan Discharge Patient Disposition: Home Condition: Stable Prescriptions: New atorvastatin [Lipitor] 40 mg tablet 40 mg PO DAILY Qty: 30 0RF Continued acetaminophen 650 mg tablet extended release 650 mg PO Q12H PRN (Reason: pain) Qty: 100 0RF aspirin 81 mg tablet,delayed release (DR/EC) 81 mg PO DAILY Qty: 30 0RF meclizine 12.5 mg tablet 12.5 mg PO Q6H PRN (Reason: dizziness) cetirizine 10 mg tablet 10 mg PO DAILY tramadol 50 mg tablet 25 - 50 mg PO Q4H meloxicam 7.5 mg tablet 7.5 mg PO DAILY famotidine 20 mg tablet 20 mg PO DAILY levothyroxine 100 mcg tablet 100 mcg PO DAILY Held triamterene-hydrochlorothiazid 37.5-25 mg tablet 1 tab PO DAILY PRN (Reason: Edema) Hold Instructions: Resume on 10/04/22. Discharge Orders: Discharge Order (Routine); Ordered 09/27/22 Ordered By: Bahman Corrales Referrals: Kelsey Cedillo APN [Primary Care Provider] - 1 week (Please call wednesday with appointment) Patient Instructions: Hypertension, Altered Mental Status (GEN), Opioid Safety Discharge Attestations Time Spent in Discharge Care*: less than 30 min Quality Metrics Clinical Quality Measures [ No reported AMI, CVA or VTE this stay] Coding Level of Care Code Acute Chg FW DC note Exam Expanded Problem Focused Diagnoses Stroke-like symptoms R29.90 Altered mental status R41.82 Dizziness of unknown cause R42 Dementia F03.90 Hypothyroidism E03.9 Hypothyroidism type: unspecified Hyperlipidemia E78.2 Hyperlipidemia type: mixed hyperlipidemia Hypertension I10
[2022-09-27 11:20] VITALS: BP 105/57; RESP 15
== END 2022-09-27 11:55 | disposition home or self-care (01) ==
LOC: ER 18:44 → MEDSURG 19:32
PROVIDERS: Admitting Provider Internal Medicine; Emergency Provider Emergency Medicine; PCP Nurse Practitioner Family; Visit Provider Internal Medicine
DX: R29.90 Unspecified symptoms and signs involving the nervous system (principal); R41.82 Altered mental status, unspecified; R42 Dizziness and giddiness; F03.90 Unspecified dementia, unspecified severity, without behavioral disturbance, psychotic disturbance, mood disturbance, and anxiety; E03.9 Hypothyroidism, unspecified; E78.2 Mixed hyperlipidemia; I10 Essential (primary) hypertension
CPT/HCPCS: 36415; 36416; 36600; 70496; 70498; 71045; 80048; 80053; 80306; 80307; 81001; 82803; 82962; 83735; 84100; 84145; 84443; 84484; 85025; 86140; 87040; 93005; 93306; 96360; 99285; G0378; J7030; Q9967

== ENCOUNTER 2022-11-13 10:26 | Emergency (ER) | payer MEDICARE, SELFPAY ==
[2022-11-13] VITALS (27 sets, daily range): BP systolic 91–131; BP diastolic 44–81; PULSE 79–92; RESP 16; TEMP 36.7; O2SAT 86–100
--- NOTE | 2022-11-13 10:40 | W.ED.FEMALGU ---
Documented by User: Mavis Manzanares PA-C 11/13/22 15:01 HPI - Female Genitourinary General: Chief complaint: Urogenital-Female Stated complaint: UTI Time Seen by Provider: 11/13/22 10:35 Source: EMS Mode of arrival: EMS Limitations: altered mental status (hx of dementia) History of Present Illness: 82-year-old female presents to the ER via EMS for possible urinary infection. Patient has significant dementia and lives at home with her son. He reports this morning he noted a large amount of blood in the toilet after patient went to the bathroom. She also complained that it hurt when she went to the bathroom. Denies any changes in her moods or behaviors. Denies any fevers or recent illnesses. Denies any abdominal pain. Review of Systems General: Reports: 10 or more systems reviewed and unremarkable except in HPI and below PFSH ED PFSH: Medical History Acute hemorrhoid Altered mental status Dementia Dizziness of unknown cause Hyperlipidemia Hypertension Hypothyroidism Impacted cerumen, bilateral Multiple somatic complaints Peripheral neuropathic pain Stroke-like symptoms Weight loss, non-intentional Surgical History History of hip replacement History of partial hysterectomy Family History Other Cancer Diabetes Social History Alcohol intake: never Household members: spouse Marital status: Current occupational status: retired Physical Exam Const: COMMON NORMALS: no acute distress; negative for patient oriented x3, limitations (hx of dementia) and negative for healthy appearing (thin, cachectic) Resp: COMMON NORMALS: normal respiratory effort, No retractions and clear to auscultation bilaterally AUSCULTATION: clear to auscultation bilaterally Cardio: COMMON NORMALS: regular rate, regular rhythm and No murmurs present (Cardio) RATE: regular rate RHYTHM: regular rhythm GI: COMMON NORMALS: Normal to inspection, nondistended, normoactive bowel sounds present, Soft to palpation and non-tender PALPATION: Yes Soft to palpation : COMMON NORMALS: Yes no CVA tenderness BLADDER/KIDNEY EXAM: Yes no CVA tenderness Back/Pelvis: COMMON NORMALS: no CVA tenderness Extremity: COMMON NORMALS: normal to inspection Neuro: COMMON NORMALS: negative for patient oriented x3 Psych: OTHER: Patient is at her baseline. She is cooperative and answers some questions. Skin: COMMON NORMALS: no rashes or lesions noted and no wounds GENERAL SKIN EXAM: no rashes or lesions noted Course ED course: Patient presents to the ER via EMS for possible UTI. Patient is a history of significant dementia and lives at home with her son. He noted blood in her urine this morning when she went to the bathroom. We will start with lab work and get a UA by straight cath. It is difficult to determine how significant this might be or other symptoms due to patient's dementia. We will go ahead and start fluids as patient's blood pressure is low at this time also. Vital Signs: Vital signs: Vital Signs Temperature 98.1 F 11/13/22 10:30 Pulse Rate 79 11/13/22 13:58 Respiratory Rate 16 11/13/22 13:58 Blood Pressure 121/59 11/13/22 13:58 Pulse Oximetry 98 11/13/22 13:58 Oxygen Delivery Me thod 11/13/22 11:05 MDM - Female Medical Decision Making Patient has a very slightly elevated white count, appears to be slightly dehydrated, however most other labs appear unremarkable. Patient's UA does show nitrate positive with blood and leukocytes. We will go ahead and do Rocephin while patient is in the ER and we have IV access at this time. We will send patient home with Cipro. Recommended pushing fluids. Follow-up with PCP in 4 to 7 days. Return to the ER with new or worsening symptoms. Lab Data 11/13/22 10:44 11/13/22 10:44 Laboratory Results WBC 10.9 10^3/uL (4.0-10.0) H 11/13/22 10:44 RBC 4.58 10^6/uL (4.1-5.3) 11/13/22 10:44 Hgb 14.0 g/dL (11.5-15.3) 11/13/22 10:44 Hct 41.8 % (37.0-47.0) 11/13/22 10:44 MCV 91.3 fl (81-99) 11/13/22 10:44 MCH 30.6 pg (28.0-34.0) 11/13/22 10:44 MCHC 33.5 g/dL (30.0-36.0) 11/13/22 10:44 RDW 13.7 % (12.1-15.1) 11/13/22 10:44 Plt Count 258 10^3/cmm (130-400) 11/13/22 10:44 MPV 11.6 fL (7.4-10.4) H 11/13/22 10:44 Neut % (Auto) 74.1 % 11/13/22 10:44 Lymph % (Auto) 15.2 % 11/13/22 10:44 [place] % (Auto) 8.9 % 11/13/22 10:44 Eos % (Auto) 1.3 % 11/13/22 10:44 Baso % (Auto) 0.3 % 11/13/22 10:44 Neut # (Auto) 8.10 10^3/uL (1.8-7.7) H 11/13/22 10:44 Lymph # (Auto) 1.7 10^3/uL (0.8-4.8) 11/13/22 10:44 [place] # (Auto) 1.0 10^3/uL (0.2-0.9) H 11/13/22 10:44 Eos # (Auto) 0.1 10^3/uL (0.0-0.8) 11/13/22 10:44 Baso # (Auto) 0.0 10^3/uL (0.0-0.1) 11/13/22 10:44 Nucleated RBC % (auto) 0 % 11/13/22 10:44 Nucleated RBCs # 0.0 /100WBC 11/13/22 10:44 Sodium 136 mmol/L (136-145) 11/13/22 10:44 Potassium 3.4 mmol/L (3.5-5.1) L 11/13/22 10:44 Chloride 95 mmol/L (98-107) L 11/13/22 10:44 Carbon Dioxide 21 mmol/L (22-29) L 11/13/22 10:44 Anion Gap 23.4 (5-19) H 11/13/22 10:44 BUN 30 mg/dL (8-23) H 11/13/22 10:44 Creatinine 1.2 mg/dL (0.5-0.9) H 11/13/22 10:44 GFR Calculation Not Reportable 11/13/22 10:44 Glucose 76 mg/dL (65-115) 11/13/22 10:44 Calculated Osmolality 287 mOsm/kg (285-295) 11/13/22 10:44 Lactic Acid 1.5 mmol/L (0.5-2.2) 11/13/22 10:44 Calcium 9.5 mg/dL (8.5-10.5) 11/13/22 10:44 Total Bilirubin 0.4 mg/dL (0.15-1.2) 11/13/22 10:44 AST 24 U/L (0-32) 11/13/22 10:44 ALT 14 U/L (0-33) 11/13/22 10:44 Alkaline Phosphatase 118 U/L (35-105) H 11/13/22 10:44 Total Protein 7.4 g/dL (6.6-8.7) 11/13/22 10:44 Albumin 3.6 g/dL (3.5-5.2) 11/13/22 10:44 Globulin 3.8 g/dL (1.3-4.6) 11/13/22 10:44 Urine Color Dark yellow (Yellow) 11/13/22 12:35 Urine Appearance Turbid (CLEAR) A 11/13/22 12:35 Urine pH 9 (5-7) H 11/13/22 12:35 Ur Specific [place] 1.010 (1.005-1.030) 11/13/22 12:35 Urine Protein 1+ (Negative) H 11/13/22 12:35 Urine Glucose (UA) Norm (Normal) 11/13/22 12:35 Urine Ketones 2+ (Negative) H 11/13/22 12:35 Urine Blood 3+ (Negative) H 11/13/22 12:35 Urine Nitrate Positive (Negative) H 11/13/22 12:35 Urine Bilirubin Neg (Negative) 11/13/22 12:35 Prot Sulfosalicylic Acd Positive (Negative) 11/13/22 12:35 Urine Urobilinogen Norm mg/dL (Negative) 11/13/22 12:35 Ur Leukocyte Esterase 2+ (Negative) H 11/13/22 12:35 Urine RBC 0-4 /hpf (0-2) H 11/13/22 12:35 Urine WBC 25-40 /hpf (0-5) H 11/13/22 12:35 Ur Squamous Epith Cells 0-4 /hpf (0-5) H 11/13/22 12:35 Uric Acid Crystals 0-4 /hpf 11/13/22 12:35 Amorphous Sediment Not Reportable 11/13/22 12:35 Urine Bacteria 4+ /hpf (NONE) H 11/13/22 12:35 Critical Care Time Critical Care Time: Critical Care Time: No Discharge Plan Discharge Patient Disposition: Home Clinical Impression: Acute UTI Condition: Stable Prescriptions: New Cipro 250 mg tablet 250 mg PO BID 7 Days Qty: 14 0RF No Action acetaminophen 650 mg tablet extended release 650 mg PO Q12H PRN (Reason: pain) Qty: 100 0RF aspirin 81 mg tablet,delayed release (DR/EC) 81 mg PO DAILY Qty: 30 0RF triamterene-hydrochlorothiazid 37.5-25 mg tablet 1 tab PO DAILY PRN (Reason: Edema) Hold Instructions: Resume on 10/04/22. atorvastatin [Lipitor] 40 mg tablet 40 mg PO DAILY Qty: 30 0RF cetirizine 10 mg tablet 10 mg PO DAILY tramadol 50 mg tablet 25 - 50 mg PO Q4H meloxicam 7.5 mg tablet 7.5 mg PO DAILY famotidine 20 mg tablet 20 mg PO DAILY levothyroxine 100 mcg tablet 100 mcg PO DAILY Discharge Orders: Discharge ED (Routine); Ordered 11/13/22 Ordered By: Mavis Manzanares Referrals: Kelsey Cedillo APN [Primary Care Provider] - Discharge Diet: Usual diet Discharge Activity: Resume usual activity Patient Instructions: Opioid Safety, Pain Management Activity Restrictions/Additional Instructions: Give Cipro as prescribed. Push fluids. Follow-up with PCP in 5 to 7 days. Return to the ER with new or worsening symptoms. 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 Documented by User: Bob L Jamirnirali, 11/14/22 06:33 HPI - Female Genitourinary General: Chief complaint: Urogenital-Female Stated complaint: UTI Time Seen by Provider: 11/13/22 10:35 PFSH ED PFSH: Medical History Acute hemorrhoid Altered mental status Dementia Dizziness of unknown cause Hyperlipidemia Hypertension Hypothyroidism Impacted cerumen, bilateral Multiple somatic complaints Peripheral neuropathic pain Stroke-like symptoms Weight loss, non-intentional Surgical History History of hip replacement History of partial hysterectomy Family History Other Cancer Diabetes Social History Alcohol intake: never Household members: spouse Marital status: Current occupational status: retired Course Vital Signs: Vital signs: Vital Signs Temperature 98.1 F 11/13/22 10:30 Pulse Rate 79 11/13/22 13:58 Respiratory Rate 16 11/13/22 13:58 Blood Pressure 121/59 11/13/22 13:58 Pulse Oximetry 98 11/13/22 13:58 Oxygen Delivery Me thod 11/13/22 11:05 MDM - Female Medical Decision Making Patient has a very slightly elevated white count, appears to be slightly dehydrated, however most other labs appear unremarkable. Patient's UA does show nitrate positive with blood and leukocytes. We will go ahead and do Rocephin while patient is in the ER and we have IV access at this time. We will send patient home with Cipro. Recommended pushing fluids. Follow-up with PCP in 4 to 7 days. Return to the ER with new or worsening symptoms. Chart reviewed and patient discussed with midlevel. Agree with assessment and plan. Lab Data 11/13/22 10:44 11/13/22 10:44 Laboratory Results WBC 10.9 10^3/uL (4.0-10.0) H 11/13/22 10:44 RBC 4.58 10^6/uL (4.1-5.3) 11/13/22 10:44 Hgb 14.0 g/dL (11.5-15.3) 11/13/22 10:44 Hct 41.8 % (37.0-47.0) 11/13/22 10:44 MCV 91.3 fl (81-99) 11/13/22 10:44 MCH 30.6 pg (28.0-34.0) 11/13/22 10:44 MCHC 33.5 g/dL (30.0-36.0) 11/13/22 10:44 RDW 13.7 % (12.1-15.1) 11/13/22 10:44 Plt Count 258 10^3/cmm (130-400) 11/13/22 10:44 MPV 11.6 fL (7.4-10.4) H 11/13/22 10:44 Neut % (Auto) 74.1 % 11/13/22 10:44 Lymph % (Auto) 15.2 % 11/13/22 10:44 [place] % (Auto) 8.9 % 11/13/22 10:44 Eos % (Auto) 1.3 % 11/13/22 10:44 Baso % (Auto) 0.3 % 11/13/22 10:44 Neut # (Auto) 8.10 10^3/uL (1.8-7.7) H 11/13/22 10:44 Lymph # (Auto) 1.7 10^3/uL (0.8-4.8) 11/13/22 10:44 [place] # (Auto) 1.0 10^3/uL (0.2-0.9) H 11/13/22 10:44 Eos # (Auto) 0.1 10^3/uL (0.0-0.8) 11/13/22 10:44 Baso # (Auto) 0.0 10^3/uL (0.0-0.1) 11/13/22 10:44 Nucleated RBC % (auto) 0 % 11/13/22 10:44 Nucleated RBCs # 0.0 /100WBC 11/13/22 10:44 Sodium 136 mmol/L (136-145) 11/13/22 10:44 Potassium 3.4 mmol/L (3.5-5.1) L 11/13/22 10:44 Chloride 95 mmol/L (98-107) L 11/13/22 10:44 Carbon Dioxide 21 mmol/L (22-29) L 11/13/22 10:44 Anion Gap 23.4 (5-19) H 11/13/22 10:44 BUN 30 mg/dL (8-23) H 11/13/22 10:44 Creatinine 1.2 mg/dL (0.5-0.9) H 11/13/22 10:44 GFR Calculation Not Reportable 11/13/22 10:44 Glucose 76 mg/dL (65-115) 11/13/22 10:44 Calculated Osmolality 287 mOsm/kg (285-295) 11/13/22 10:44 Lactic Acid 1.5 mmol/L (0.5-2.2) 11/13/22 10:44 Calcium 9.5 mg/dL (8.5-10.5) 11/13/22 10:44 Total Bilirubin 0.4 mg/dL (0.15-1.2) 11/13/22 10:44 AST 24 U/L (0-32) 11/13/22 10:44 ALT 14 U/L (0-33) 11/13/22 10:44 Alkaline Phosphatase 118 U/L (35-105) H 11/13/22 10:44 Total Protein 7.4 g/dL (6.6-8.7) 11/13/22 10:44 Albumin 3.6 g/dL (3.5-5.2) 11/13/22 10:44 Globulin 3.8 g/dL (1.3-4.6) 11/13/22 10:44 Urine Color Dark yellow (Yellow) 11/13/22 12:35 Urine Appearance Turbid (CLEAR) A 11/13/22 12:35 Urine pH 9 (5-7) H 11/13/22 12:35 Ur Specific [place] 1.010 (1.005-1.030) 11/13/22 12:35 Urine Protein 1+ (Negative) H 11/13/22 12:35 Urine Glucose (UA) Norm (Normal) 11/13/22 12:35 Urine Ketones 2+ (Negative) H 11/13/22 12:35 Urine Blood 3+ (Negative) H 11/13/22 12:35 Urine Nitrate Positive (Negative) H 11/13/22 12:35 Urine Bilirubin Neg (Negative) 11/13/22 12:35 Prot Sulfosalicylic Acd Positive (Negative) 11/13/22 12:35 Urine Urobilinogen Norm mg/dL (Negative) 11/13/22 12:35 Ur Leukocyte Esterase 2+ (Negative) H 11/13/22 12:35 Urine RBC 0-4 /hpf (0-2) H 11/13/22 12:35 Urine WBC 25-40 /hpf (0-5) H 11/13/22 12:35 Ur Squamous Epith Cells 0-4 /hpf (0-5) H 11/13/22 12:35 Uric Acid Crystals 0-4 /hpf 11/13/22 12:35 Amorphous Sediment Not Reportable 11/13/22 12:35 Urine Bacteria 4+ /hpf (NONE) H 11/13/22 12:35 Discharge Plan Discharge Patient Disposition: Home Clinical Impression: Acute UTI Condition: Stable Prescriptions: New Cipro 250 mg tablet 250 mg PO BID 7 Days Qty: 14 0RF No Action acetaminophen 650 mg tablet extended release 650 mg PO Q12H PRN (Reason: pain) Qty: 100 0RF aspirin 81 mg tablet,delayed release (DR/EC) 81 mg PO DAILY Qty: 30 0RF triamterene-hydrochlorothiazid 37.5-25 mg tablet 1 tab PO DAILY PRN (Reason: Edema) Hold Instructions: Resume on 10/04/22. atorvastatin [Lipitor] 40 mg tablet 40 mg PO DAILY Qty: 30 0RF cetirizine 10 mg tablet 10 mg PO DAILY tramadol 50 mg tablet 25 - 50 mg PO Q4H meloxicam 7.5 mg tablet 7.5 mg PO DAILY famotidine 20 mg tablet 20 mg PO DAILY levothyroxine 100 mcg tablet 100 mcg PO DAILY Discharge Orders: Discharge ED (Routine); Ordered 11/13/22 Ordered By: Mavis Manzanares Referrals: Mamadou,NEIL Cole [Primary Care Provider] - Discharge Diet: Usual diet Discharge Activity: Resume usual activity Patient Instructions: Opioid Safety, Pain Management Activity Restrictions/Additional Instructions: Give Cipro as prescribed. Push fluids. Follow-up with PCP in 5 to 7 days. Return to the ER with new or worsening symptoms. 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
[2022-11-13 11:00] LABS: Basophils % 0.3 %; Eosinophils # 0.1 10^3/uL (0.0-0.8); Eosinophils % 1.3 %; Hematocrit 41.8 % (37.0-47.0); Lymphocytes # 1.7 10^3/uL (0.8-4.8); Lymphocytes % 15.2 %; Mean Corpuscular HGB Conc 33.5 g/dL (30.0-36.0); Mean Corpuscular Hemoglobin 30.6 pg (28.0-34.0); Mean Corpuscular Volume 91.3 fl (81-99); Mean Platelet Volume 11.6 fL (7.4-10.4); Monocytes % 8.9 %; Neutrophils % 74.1 %; Nucleated Red Blood Cells % 0 %; Platelet Count 258 10^3/cmm (130-400); Red Blood Count 4.58 10^6/uL (4.1-5.3); Red Cell Distribution Width 13.7 % (12.1-15.1); White Blood Count 10.9 10^3/uL (4.0-10.0)
[2022-11-13] MEDS: sodium chloride 0.9% 500 ML 999 ML IV (11:18)
[2022-11-13 11:27] LABS: Alanine Aminotransferase 14 U/L (0-33); Albumin Level 3.6 g/dL (3.5-5.2); Alkaline Phosphatase 118 U/L (35-105); Anion Gap 23.4 (5-19); Aspartate Amino Transferase 24 U/L (0-32); Blood Urea Nitrogen 30 mg/dL (8-23); Calcium 9.5 mg/dL (8.5-10.5); Carbon Dioxide 21 mmol/L (22-29); Chloride 95 mmol/L (98-107); Globulin 3.8 g/dL (1.3-4.6); Glucose 76 mg/dL (65-115); Osmolality Calculated 287 mOsm/kg (285-295); Potassium 3.4 mmol/L (3.5-5.1); Sodium 136 mmol/L (136-145); Total Bilirubin 0.4 mg/dL (0.15-1.2); Total Protein 7.4 g/dL (6.6-8.7)
[2022-11-13 11:28] LABS: Lactic Sepsis W/Reflex 1.5 mmol/L (0.5-2.2)
[2022-11-13 13:33] LABS: Blood Urine 3+ (Negative); Glucose Urine UA Norm (Normal); Ketones Urine 2+ (Negative); Protein Urine 1+ (Negative); Urine Appearance Turbid (CLEAR); Urine Color Dark Yellow (Yellow); pH Urine 9 (5-7)
[2022-11-13 13:34] LABS: Add Urine Microscopic? YES; Bacteria Urine 4+ /hpf; Bilirubin Urine Neg (Negative); Leukocyte Esterase Urine 2+ (Negative); Nitrate Urine Positive (Negative); RBC Urine 0-4 /hpf (0-2); Squamous Epithelial Cell Urine 0-4 /hpf (0-5); Sulfosalicylic Acid Urine Positive (Negative); Uric Acid Crystals Urine 0-4 /hpf; Urobilinogen Urine Norm (Negative); WBC Urine 25-40 /hpf (0-5)
[2022-11-13 13:36] LABS: Add Urine Culture? Yes
[2022-11-13] MEDS: cefTRIAXone 1,000 MG in sodium chloride 0.9% (plus) 50 ML 100 MG IV (13:45)
== END 2022-11-13 14:01 | disposition home or self-care (01) ==
PROVIDERS: Emergency Provider Physician Assistant; PCP Nurse Practitioner Family
DX: N39.0 Urinary tract infection, site not specified (principal); Z79.82 Long term (current) use of aspirin; F03.90 Unspecified dementia, unspecified severity, without behavioral disturbance, psychotic disturbance, mood disturbance, and anxiety; E78.5 Hyperlipidemia, unspecified; I10 Essential (primary) hypertension
CPT/HCPCS: 80053; 81001; 83605; 85025; 87077; 87086; 87186; 96365; 99284; J0696; J7040